=== PATIENT | female | born 1945 | race Hispanic/Latino ===

== ENCOUNTER → 2019-03-28 | Outpatient (CLI) | payer OTHER ==
[~2019-03-28] MED LIST: ASPI-555 PO; ATEN100T PO; ATOR40TA71 PO; CALC600T12 PO; CHOL100046 PO; CLOP75TA32 PO; FURO20TA4 PO; LISI1TAB13 PO; METF-445 PO; MVIT PO; PANT40TA25 PO; SERT25TA5 PO
== END | disposition home or self-care (01) ==
LOC: SHCH 14:47
PROVIDERS: ATTEND Internal Medicine Cardiovascular Disease
DX: I08.0 Rheumatic disorders of both mitral and aortic valves (principal); I11.9 Hypertensive heart disease without heart failure
CPT/HCPCS: 93306

== ENCOUNTER 2019-10-14 11:23 | Observation (INO) | payer OTHER ==
[~2019-10-14] VITALS: Ht 162.6 cm; Wt 76.4 kg
[~2019-10-14 11:23] MED LIST changes: -LISI1TAB13 PO; +LISI1TAB29 PO
[2019-10-14 11:47] LABS: BASOPHILS % (AUTO) 0.5 % (0.0-5.0); EOSINOPHILS % (AUTO) 0.9 % (0.0-8.0); MEAN CORPUSCULAR HEMOGLOBIN 26.4 pg (27.0-33.0); MEAN CORPUSCULAR HGB CONC 32.1 g/dL (32.0-36.0); MEAN CORPUSCULAR VOLUME 82.1 fL (79-99); MONOCYTES % (AUTO) 8.7 % (3.0-13.0); NEUTROPHILS % (AUTO) 72.9 % (40.0-77.0); PLATELET COUNT (AUTO) 178 K/uL (130-400); RED BLOOD CELL COUNT(AUTO) 4.14 MIL/uL (4.00-5.50); RED CELL DISTRIBUTION WIDTH 21.4 % (11.0-15.5); WHITE BLOOD COUNT (AUTO) 6.6 K/uL (4.8-10.8)
[2019-10-14] MEDS ORDERED: ASPIRIN 325 MG TABLET ONE (11:49)
[2019-10-14 11:58] LABS: CREATININE 0.9 mg/dL (0.5-1.5); POTASSIUM 3.8 mmol/L (3.5-5.1)
[2019-10-14 12:03] LABS: ALBUMIN 3.4 g/dL (3.5-5.0); BILIRUBIN,TOTAL 0.4 mg/dL (0.2-1.0); TOTAL PROTEIN, SERUM 7.6 g/dL (6.0-8.3)
[2019-10-14 12:14] LABS: PARTIAL THROMBOPLASTIN TIME 24.9 SEC (26.3-35.5); PROTHROMBIN TIME 10.5 SEC (9.6-11.6)
[2019-10-14] MEDS ORDERED: SODIUM CHLORIDE 0.9% 1000ML 1,000 ML IV SCH (14:28)
[2019-10-14] MEDS ORDERED: HYDRALAZINE HCL 20 MG/ML VIAL IV PRN (14:30)
[2019-10-14] MEDS ORDERED: MAG HYDROX/AL HYDROX/SIMETH ES 30 ML SUSP UDCUP PO PRN (14:30)
[2019-10-14] MEDS ORDERED: DIPHENHYDRAMINE HCL 25 MG CAPSULE PO PRN (14:30)
[2019-10-14] MEDS ORDERED: GUAIFENESIN-DM 200/20 MG 10 ML PO PRN (14:30)
[2019-10-14] MEDS ORDERED: DiphenhydrAMINE HCL 50 MG/ML VIAL IV PRN (14:30)
[2019-10-14] MEDS ORDERED: NITROGLYCERIN 0.4 MG SL TAB SL PRN (14:30)
[2019-10-14] MEDS ORDERED: LACTULOSE 20 GM/30 ML UDCUP PO PRN (14:30)
[2019-10-14] MEDS ORDERED: ONDANSETRON HCL 4 MG/2 ML VIAL IV PRN (14:30)
[2019-10-14] MEDS ORDERED: ACETAMINOPHEN 325 MG TAB PO PRN ×2 (14:30)
[2019-10-14] MEDS ORDERED: MORPHINE SULFATE 2 MG/ML 1ML SYG IVP PRN (15:00)
[2019-10-14 15:55] LABS: APPEARANCE,URINE Clear (CLEAR); BILIRUBIN,URINE Negative (NEGATIVE); COLOR,URINE Yellow (YELLOW); GLUCOSE, URINE (UA) Negative (NEGATIVE); KETONES,URINE Negative (NEGATIVE); LEUKOCYTE ESTERASE ,URINE Trace (NEGATIVE); NITRATE,URINE Negative (NEGATIVE); OCCULT BLOOD,URINE Negative (NEGATIVE); PH,URINE 7.5 (5.0-8.0); PROTEIN,URINE Negative (NEGATIVE); UROBILINOGEN,URINE 0.2 mg/dL (0.2-1.0)
[2019-10-14] MEDS: POLYETHYLENE GLYCOL 3350 17 GM POWD.PACK PO SCH (16:00)
[2019-10-14 16:03] LABS: BACTERIA,URINE Rare /HPF (None Seen); RBC,URINE 0-1 /HPF (0-1); SQUAMOUS EPITHELIAL CELL,UR Rare /HPF (0-2); WBC,URINE 0-1 /HPF (0-1)
[2019-10-14 16:14] VITALS: BP 152/72
[2019-10-14] MEDS ORDERED: PANTOPRAZOLE SODIUM 40 MG TABLET.DR PO ONE (17:53)
[2019-10-14] MEDS: PANTOPRAZOLE SODIUM 40 MG TABLET.DR PO SCH (17:55)
[2019-10-14] MEDS ORDERED: LISI1TAB28 PO (18:31)
[2019-10-14] MEDS ORDERED: AMLO5TAB9 PO (18:31)
[2019-10-14 19:00] VITALS: BP 140/63
[2019-10-14] MEDS ORDERED: METOPROLOL TARTRATE 25 MG TAB PO SCH (21:00)
[2019-10-14 23:00] VITALS: BP 128/54
[2019-10-15 03:00] VITALS: BP 117/50
[2019-10-15 07:00] VITALS: BP 126/62
[2019-10-15] MEDS ORDERED: PANT40TA PO (07:33)
--- NOTE | 2019-10-15 07:40 | NUR ---
ASSESSMENT ENCOUNTERED PT AMBULATING FROM BATHROOM TO BED, A&OX3, GAIT STEADY AND STRONG WITH STAND BY ASSIST, CALM COOPERATIVE AND DOES NOT APPEAR TO BE IN ANY DISTRESS NOR ANY NEURO DEFICITS PRESENT. PT DENIES PAIN, SOB, NAUSEA. PT IS ABLE TO TOLERATE FOODS, FLUIDS AND MEDICATION WITH NO THROAT CLEARING OR COUGH. CALL LIGHT WITHIN REACH.
[2019-10-15] MEDS: PANTOPRAZOLE SODIUM 40 MG TABLET.DR PO SCH (07:44)
[2019-10-15] MEDS: POLYETHYLENE GLYCOL 3350 17 GM POWD.PACK PO SCH (07:44)
[2019-10-15 08:12] LABS: BASOPHILS % (AUTO) 0.5 % (0.0-5.0); EOSINOPHILS % (AUTO) 1.4 % (0.0-8.0); HEMATOCRIT 33.8 % (36-48); LYMPHOCYTES % (AUTO) 25.9 % (21.0-51.0); MEAN CORPUSCULAR HEMOGLOBIN 26.8 pg (27.0-33.0); MEAN CORPUSCULAR HGB CONC 32.2 g/dL (32.0-36.0); MEAN CORPUSCULAR VOLUME 83.1 fL (79-99); MONOCYTES % (AUTO) 10.5 % (3.0-13.0); NEUTROPHILS % (AUTO) 61.7 % (40.0-77.0); NUCLEATED RED BLOOD CELLS 0.1 % (0.0-0.19); PLATELET COUNT (AUTO) 153 K/uL (130-400); RED BLOOD CELL COUNT(AUTO) 4.07 MIL/uL (4.00-5.50); RED CELL DISTRIBUTION WIDTH 20.5 % (11.0-15.5); WHITE BLOOD COUNT (AUTO) 6.5 K/uL (4.8-10.8)
[2019-10-15] MEDS ORDERED: ENOXAPARIN SODIUM 30 MG/0.3 ML SQ SCH (09:00)
--- NOTE | 2019-10-15 10:00 | NUR ---
DISCHARGE INSTRUCTIONS GIVEN, PIV REMOVED AND INTACT, DISCHARGED HOME TO FAMILY VEHICLE VIA WHEELCHAIR.
== END 2019-10-15 10:15 | disposition home or self-care (01) ==
LOC: EDH 11:23 → EDHIP 14:28 → 2AH 15:33
PROVIDERS: ADMIT Family Medicine; ATTEND Family Medicine
DX: R07.89 Other chest pain (principal); R10.13 Epigastric pain; K21.9 Gastro-esophageal reflux disease without esophagitis; I44.7 Left bundle-branch block, unspecified; I10 Essential (primary) hypertension; E11.9 Type 2 diabetes mellitus without complications; I25.10 Atherosclerotic heart disease of native coronary artery without angina pectoris; E78.5 Hyperlipidemia, unspecified; E66.9 Obesity, unspecified; M81.0 Age-related osteoporosis without current pathological fracture; Q21.0 Ventricular septal defect; I25.2 Old myocardial infarction; Z86.73 Personal history of transient ischemic attack (TIA), and cerebral infarction without residual deficits; Z87.891 Personal history of nicotine dependence; Z87.19 Personal history of other diseases of the digestive system; Z87.11 Personal history of peptic ulcer disease; Z95.1 Presence of aortocoronary bypass graft; Z79.82 Long term (current) use of aspirin; Z79.84 Long term (current) use of oral hypoglycemic drugs; Z79.899 Other long term (current) drug therapy
CPT/HCPCS: 36415 ×2; 71045; 80053; 81001; 82550 ×2; 83880; 84484 ×4; 85025 ×2; 85610; 85730; 87804 ×2; 93005 ×3; 96372; 99291; G0378 ×11; J1650; J7030

== ENCOUNTER 2019-12-04 13:18 | Observation (INO) | payer OTHER ==
[~2019-12-04] VITALS: Ht 167.6 cm; Wt 75.6 kg
[~2019-12-04 13:18] MED LIST changes: +AMLO5TAB9 PO; -ASPI-555 PO; -CLOP75TA32 PO; -FURO20TA4 PO; +LISI1TAB28 PO; -LISI1TAB29 PO; +PANT40TA PO; -PANT40TA25 PO
[2019-12-04] MEDS ORDERED: ASPIRIN 325 MG TABLET ONE (13:50)
[2019-12-04 13:54] LABS: BASOPHILS % (AUTO) 0.3 % (0.0-5.0); EOSINOPHILS % (AUTO) 0.7 % (0.0-8.0); HEMATOCRIT 41.5 % (36-48); MEAN CORPUSCULAR HEMOGLOBIN 26.8 pg (27.0-33.0); MEAN CORPUSCULAR HGB CONC 31.8 g/dL (32.0-36.0); MEAN CORPUSCULAR VOLUME 84.3 fL (79-99); MONOCYTES % (AUTO) 9.2 % (3.0-13.0); NEUTROPHILS % (AUTO) 68.6 % (40.0-77.0); PLATELET COUNT (AUTO) 179 K/uL (130-400); RED BLOOD CELL COUNT(AUTO) 4.92 MIL/uL (4.00-5.50); RED CELL DISTRIBUTION WIDTH 15.7 % (11.0-15.5); WHITE BLOOD COUNT (AUTO) 8.8 K/uL (4.8-10.8)
[2019-12-04 14:11] LABS: INR 0.98 (0.85-1.15); PARTIAL THROMBOPLASTIN TIME 25.9 SEC (26.3-35.5); PROTHROMBIN TIME 10.3 SEC (9.6-11.6)
[2019-12-04 14:12] LABS: CREATININE 1.2 mg/dL (0.5-1.5); POTASSIUM 4.2 mmol/L (3.5-5.1)
[2019-12-04 14:17] LABS: ALBUMIN 3.7 g/dL (3.5-5.0); BILIRUBIN,TOTAL 0.5 mg/dL (0.2-1.0); TOTAL PROTEIN, SERUM 8.3 g/dL (6.0-8.3)
[2019-12-04] MEDS ORDERED: HYDRALAZINE HCL 20 MG/ML VIAL IV PRN (17:30)
[2019-12-04] MEDS ORDERED: ACETAMINOPHEN 325 MG TAB PO PRN (17:30)
[2019-12-04] MEDS ORDERED: LISINOPRIL 20 MG TABLET PO SCH (17:30)
[2019-12-04] MEDS ORDERED: HYDROCHLOROTHIAZIDE 25 MG TABLET PO SCH (17:30)
--- NOTE | 2019-12-04 19:00 | NUR ---
RECEIVED REPORT RECEIVED FROM AM NURSE MANRIQUE. PT JUST GOT ADMITTED UP ON THE FLOOR. NURSE'S ROUNDS DONE. ADMISSION CARE DONE. IN FOR MORE CARE AND MANAGEMENT.
[2019-12-04] MEDS: LIDOCAINE 5% TOPICAL PATCH TP SCH (20:13)
--- NOTE | 2019-12-04 20:13 | NUR ---
MEDS SHIFT ASSESSMENT DONE, PLEASE REFER TO CHART. PENDING MED ORDERED FROM ER ADMINISTERED, TOLERATED WELL. ORIENTED TO ROOM AND UNIT. KEPT RESTED AND COMFORTABLE IN BED. CALL LIGHT WITHIN REACH. WILL MONITOR PT. Addendum: 12/04/19 at 2238 by DEMETRIUS BURROUGHS RN RN Amended: Links added.
[2019-12-04 20:16] VITALS: BP 152/76
--- NOTE | 2019-12-04 21:20 | NUR ---
DATA ADMISSION DATA BASE COMPLETED. UPDATED PT'S MEDS IN THE COMPUTER. RE-ITERATED FALL PRECAUTIONS. PT VERBALIZES UNDERSTANDING. PT COMPLAINTS OF PAINS ON HER RT CHEST WALL WITH MOVEMENT. MEDICATED WITH TYLENOL PO. KEPT RESTED AND COMFORTABLE IN BED. WILL RE-ASSESS PT.
[2019-12-04] MEDS ORDERED: ASPI-1012 PO (21:34)
[2019-12-04] MEDS ORDERED: FERR-82 PO (21:34)
[2019-12-04 22:19] LABS: CREATINE KINASE, TOTAL 50 U/L (21-232); MYOGLOBIN 62 ng/mL (10-92); TROPONIN I < 0.04 ng/mL (0.00-0.06)
[2019-12-04] MEDS ORDERED: RANITIDINE HCL 15 MG/1 ML PO SCH (23:00)
[2019-12-04 23:35] LABS: CHOLESTEROL 168 mg/dL (<200); HDL CHOLESTEROL 111 mg/dL (35-85); LDL DIRECT 101 mg/dL (0-99); TRIGLYCERIDES 178 mg/dL (30-200)
[2019-12-05 00:16] VITALS: BP 124/67
--- NOTE | 2019-12-05 02:00 | NUR ---
ROUNDS PT RESTING WELL, FAIRLY ASLEEP WITH RESPIRATIONS EVEN AND UNLABORED. NO NOTED DISTRESS. KEPT UNDISTURBED FOR NOW WILL MONITOR PT. CALL LIGHT WITHIN REACH.
[2019-12-05 04:16] VITALS: BP 114/61
[2019-12-05 05:07] LABS: CREATINE KINASE, TOTAL 63 U/L (21-232); MYOGLOBIN 52 ng/mL (10-92); TROPONIN I < 0.04 ng/mL (0.00-0.06)
--- NOTE | 2019-12-05 06:10 | NUR ---
ROUNDS PT RESTING WELL, STILL FAIRLY ASLEEP. NO DISTRESS NOTED. KEPT UNDISTURBED. FOR MORE CARE AND MANAGEMENT.
[2019-12-05 07:00] VITALS: BP 137/65
[2019-12-05] MEDS ORDERED: TRAMADOL HCL 50 MG TABLET PO SCH (08:15)
[2019-12-05] MEDS: LIDOCAINE 5% TOPICAL PATCH TP SCH (08:45)
[2019-12-05] MEDS ORDERED: ASPIRIN 325MG EC TAB 325 MG TABLET.DR PO SCH (09:00)
[2019-12-05 10:32] LABS: CREATINE KINASE, TOTAL 51 U/L (21-232); MYOGLOBIN 48 ng/mL (10-92); TROPONIN I < 0.04 ng/mL (0.00-0.06)
[2019-12-05] MEDS ORDERED: FERROUS SULFATE 325 MG TABLET.DR PO SCH (12:00)
[2019-12-05 12:01] VITALS: BP 130/60
--- NOTE | 2019-12-05 13:30 | NUR ---
PT D/C HOME USING TEACH BACK TECHNIQUE RE; NEW MEDS, HOME MEDS, S/S TO WATCH FOR AND WHEN TO CALL MD OR 911. FOLLOW UP WITH YOUR PRIMARY DOCTOR IN 2-4 DAYS FOR TRANSITION OF CARE. FOLLOW UP WITH YOUR SR TECHNICAL SALES CONSULTANT IN 1-2 WEEKS CALL TO SET UP AN APPOINTMENT. IF CHEST PAIN OR SHORTNESS OF BREATH DOES NOT RESOLVE WITH REST CALL 911. IV OUT INTACT, NO BLEEDING, AAOX3, DENIES ANY DISTRESS, EDUCATIONS GIVEN DAUGHTER AT BEDSIDE.
--- NOTE | 2019-12-05 14:38 | NUR ---
CM NOTE PATIENT DISCHARGED, GONE. NO NEEDS VERBALIZED BY NURSING STAFF. Addendum: 12/05/19 at 1439 by BLAIRE FERNANDEZ RN CM Amended: Links added.
[2019-12-05] MEDS ORDERED: AMLODIPINE BESYLATE 5 MG TAB PO SCH (21:00)
[2019-12-05] MEDS ORDERED: SERTRALINE HCL 50 MG TABLET PO SCH (21:00)
[2019-12-05] MEDS ORDERED: ATORVASTATIN CALCIUM 40 MG TABLET PO SCH (21:00)
== END 2019-12-05 14:18 | disposition home or self-care (01) ==
LOC: EDH 13:18 → EDHIP 17:19 → 4DH 18:29
PROVIDERS: ADMIT Internal Medicine; ATTEND Internal Medicine
DX: M94.0 Chondrocostal junction syndrome [Tietze] (principal); I11.9 Hypertensive heart disease without heart failure; E11.9 Type 2 diabetes mellitus without complications; E78.5 Hyperlipidemia, unspecified; M81.0 Age-related osteoporosis without current pathological fracture; Z87.11 Personal history of peptic ulcer disease; Z86.73 Personal history of transient ischemic attack (TIA), and cerebral infarction without residual deficits; Z87.891 Personal history of nicotine dependence; Z95.1 Presence of aortocoronary bypass graft; Z79.82 Long term (current) use of aspirin; Z79.84 Long term (current) use of oral hypoglycemic drugs; Z79.899 Other long term (current) drug therapy
CPT/HCPCS: 36415 ×2; 71045; 80053; 80061; 82270; 82550 ×4; 82948 ×3; 83874 ×3; 84484 ×4; 85025; 85610; 85730; 93005; 99284; G0378 ×20

== ENCOUNTER 2020-04-07 22:41 | Observation (INO) | payer OTHER ==
[~2020-04-07] VITALS: Ht 162.6 cm; Wt 78.8 kg
[~2020-04-07 22:41] MED LIST changes: +ASPI-1012 PO; +FERR-82 PO
[2020-04-07 22:54] LABS: BASOPHILS % (AUTO) 0.3 % (0.0-5.0); EOSINOPHILS % (AUTO) 0.8 % (0.0-8.0); HEMATOCRIT 40.1 % (36-48); LYMPHOCYTES % (AUTO) 17.9 % (21.0-51.0); MEAN CORPUSCULAR HEMOGLOBIN 29.6 pg (27.0-33.0); MEAN CORPUSCULAR HGB CONC 33.4 g/dL (32.0-36.0); MEAN CORPUSCULAR VOLUME 88.7 fL (79-99); MONOCYTES % (AUTO) 7.3 % (3.0-13.0); NEUTROPHILS % (AUTO) 73.4 % (40.0-77.0); PLATELET COUNT (AUTO) 170 K/uL (130-400); RED BLOOD CELL COUNT(AUTO) 4.52 MIL/uL (4.00-5.50); RED CELL DISTRIBUTION WIDTH 12.9 % (11.0-15.5); WHITE BLOOD COUNT (AUTO) 12.2 K/uL (4.8-10.8)
[2020-04-07] MEDS ORDERED: NITROGLYCERIN 0.4 MG SL TAB SL ONE (22:54)
[2020-04-07 23:15] LABS: CREATININE 0.8 mg/dL (0.5-1.5); POTASSIUM 4.3 mmol/L (3.5-5.1)
[2020-04-07 23:16] LABS: ALBUMIN 3.8 g/dL (3.5-5.0); BILIRUBIN,TOTAL 0.5 mg/dL (0.2-1.0)
[2020-04-07] MEDS ORDERED: NITROGLYCERIN 1GM/1 INCH PACKET TD ONE (23:20)
[2020-04-07 23:21] LABS: INR 0.95 (0.85-1.15); PARTIAL THROMBOPLASTIN TIME 25.7 SEC (26.3-35.5); PROTHROMBIN TIME 10.3 SEC (9.6-11.6)
[2020-04-08] MEDS ORDERED: HYDRALAZINE HCL 20 MG/ML VIAL IV PRN (03:00)
[2020-04-08] MEDS ORDERED: ACETAMINOPHEN 325 MG TAB PO PRN ×2 (03:00)
[2020-04-08] MEDS ORDERED: MORPHINE SULFATE 2 MG/ML 1ML SYG IV PRN (03:00)
[2020-04-08] MEDS: CEFTRIAXONE SODIUM 1 GM IV SCH ×2 (03:00→15:21)
[2020-04-08] MEDS ORDERED: ONDANSETRON HCL 4 MG/2 ML VIAL IV PRN (03:00)
[2020-04-08 04:05] VITALS: BP 150/69
[2020-04-08] MEDS: SODIUM CHLORIDE 0.9% 1000ML 1,000 ML IV SCH ×2 (04:51→18:03)
[2020-04-08 04:52] LABS: HEMOGLOBIN A1C 6.3 % (4.0-6.0)
[2020-04-08 04:53] LABS: CHOLESTEROL 156 mg/dL (<200); HDL CHOLESTEROL 48 mg/dL (35-85); LDL DIRECT 96 mg/dL (0-99); TRIGLYCERIDES 147 mg/dL (30-200)
--- NOTE | 2020-04-08 05:00 | NUR ---
MED REC PT DID NOT BRING HER HOME MEDICATION TO RECONCILE. PT STATES SHE WILL CALL HER DAUGHTER TO BRING BECAUSE SHE DOES NOT REMEMBER WHAT MEDICATIONS SHE TAKES AT HOME
[2020-04-08 08:00] VITALS: BP 148/68
[2020-04-08] MEDS: FAMOTIDINE/PF 20 MG/2 ML VIAL IV SCH ×2 (10:27→20:58)
[2020-04-08] MEDS: ENOXAPARIN SODIUM 30 MG/0.3 ML SQ SCH (10:27)
[2020-04-08] MEDS: METOPROLOL TARTRATE 25 MG TAB PO SCH ×2 (10:27→21:00)
[2020-04-08] MEDS: ASPIRIN 81MG TAB.CHEW PO SCH (10:27)
[2020-04-08 12:00] VITALS: BP 130/68
[2020-04-08 13:56] LABS: APPEARANCE,URINE Clear (CLEAR); BILIRUBIN,URINE Negative (NEGATIVE); COLOR,URINE Yellow (YELLOW); GLUCOSE, URINE (UA) Negative (NEGATIVE); KETONES,URINE Negative (NEGATIVE); LEUKOCYTE ESTERASE ,URINE Trace (NEGATIVE); NITRATE,URINE Negative (NEGATIVE); OCCULT BLOOD,URINE Negative (NEGATIVE); PROTEIN,URINE Negative (NEGATIVE); UROBILINOGEN,URINE 0.2 mg/dL (0.2-1.0)
[2020-04-08 14:12] LABS: HEMATOCRIT 35.6 % (36-48); MEAN CORPUSCULAR HGB CONC 33.4 g/dL (32.0-36.0); MEAN CORPUSCULAR VOLUME 89.7 fL (79-99); RED BLOOD CELL COUNT(AUTO) 3.97 MIL/uL (4.00-5.50); RED CELL DISTRIBUTION WIDTH 13.1 % (11.0-15.5); WHITE BLOOD COUNT (AUTO) 7.5 K/uL (4.8-10.8)
[2020-04-08 14:18] LABS: BACTERIA,URINE Few /HPF (None Seen); RBC,URINE 0-1 /HPF (0-1)
[2020-04-08 14:19] LABS: WBC,URINE 0-1 /HPF (0-1)
[2020-04-08 14:41] LABS: CARBON DIOXIDE 32 mmol/L (21-32); CHLORIDE 104 mmol/L (101-111); CREATINE KINASE, TOTAL 35 U/L (21-232); CREATININE 0.9 mg/dL (0.5-1.5); GLOMERULAR FILTR. RATE CALC 65 mL/min (>60); GLUCOSE,RANDOM 119 mg/dL (70-105); MYOGLOBIN 24 ng/mL (10-92); POTASSIUM 4.1 mmol/L (3.5-5.1); SODIUM SERUM 139 mmol/L (136-145); TROPONIN I < 0.04 ng/mL (0.00-0.06); UREA NITROGEN, BLOOD 18 mg/dL (7-18)
[2020-04-08 16:00] VITALS: BP_SYST 136; BP_SYST 159; BP_DIAS 64; BP_DIAS 67
[2020-04-08] MEDS ORDERED: OMEP10CA5 PO (18:28)
[2020-04-08] MEDS ORDERED: ASPI-1012 PO (18:28)
[2020-04-08] MEDS ORDERED: METF-445 PO (18:28)
[2020-04-08] MEDS ORDERED: AMLO-390 PO (18:28)
[2020-04-08] MEDS ORDERED: ATEN100T PO (18:28)
[2020-04-08] MEDS ORDERED: DEXTROSE 50%-WATER 50 ML DISP.SYRIN IV PRN (18:45)
[2020-04-08] MEDS ORDERED: GLUCAGON 1MG KIT 1 MG ML IM PRN (18:45)
[2020-04-08 18:46] LABS: CREATINE KINASE, TOTAL 37 U/L (21-232); MYOGLOBIN 30 ng/mL (10-92); TROPONIN I < 0.04 ng/mL (0.00-0.06)
--- NOTE | 2020-04-08 18:50 | NUR ---
Pt was transferred to 3rd floor, rm 303, pt endorsed to Branedn, aox4, no visible distress, relaxed, taken down in wheelchair, pending lexiscan in AM, home meds reconciled in system.
[2020-04-08 20:00] VITALS: BP 173/60
--- NOTE | 2020-04-08 20:00 | NUR ---
NO PAIN Pt aao x4 ,denies chest pain.
[2020-04-08] MEDS: LISINOPRIL 20 MG TABLET PO SCH (20:58)
[2020-04-08] MEDS: HYDROCHLOROTHIAZIDE 25 MG TABLET PO SCH (20:59)
[2020-04-08] MEDS: SERTRALINE HCL 50 MG TABLET PO SCH (21:00)
[2020-04-08] MEDS ORDERED: ATORVASTATIN CALCIUM 10 MG TABLET PO SCH (21:00)
[2020-04-08] MEDS ORDERED: ATORVASTATIN CALCIUM 40 MG TABLET PO SCH (21:00)
[2020-04-08] MEDS: INSULIN HUMULIN R 100 UNIT/ML 3ML SQ SCH (21:00)
[2020-04-08] MEDS: AMLODIPINE BESYLATE 5 MG TAB PO SCH (21:00)
[2020-04-08] MEDS: ATORVASTATIN CALCIUM 10 MG TABLET PO SCH (21:00)
[2020-04-08 23:53] VITALS: BP 160/66
[2020-04-09] VITALS (7 sets, daily range): BP systolic 110–175; BP diastolic 47–70
[2020-04-09] MEDS: CEFTRIAXONE SODIUM 1 GM IV SCH ×2 (01:29→15:45)
--- NOTE | 2020-04-09 04:10 | NUR ---
PRN Apresoline given for sys bp >160.
[2020-04-09] MEDS: SODIUM CHLORIDE 0.9% 1000ML 1,000 ML IV SCH ×2 (04:17→18:54)
[2020-04-09 05:33] LABS: BASOPHILS % (AUTO) 0.4 % (0.0-5.0); EOSINOPHILS % (AUTO) 0.8 % (0.0-8.0); HEMATOCRIT 38.6 % (36-48); LYMPHOCYTES % (AUTO) 22.8 % (21.0-51.0); MEAN CORPUSCULAR HGB CONC 33.7 g/dL (32.0-36.0); MEAN CORPUSCULAR VOLUME 88.9 fL (79-99); NEUTROPHILS % (AUTO) 66.8 % (40.0-77.0); PLATELET COUNT (AUTO) 133 K/uL (130-400); RED BLOOD CELL COUNT(AUTO) 4.34 MIL/uL (4.00-5.50); RED CELL DISTRIBUTION WIDTH 13.2 % (11.0-15.5); WHITE BLOOD COUNT (AUTO) 8.5 K/uL (4.8-10.8)
[2020-04-09 05:48] LABS: ALBUMIN 3.3 g/dL (3.5-5.0); BILIRUBIN,TOTAL 0.5 mg/dL (0.2-1.0); CREATININE 0.9 mg/dL (0.5-1.5); POTASSIUM 3.7 mmol/L (3.5-5.1); TOTAL PROTEIN, SERUM 7.4 g/dL (6.0-8.3)
[2020-04-09] MEDS: INSULIN HUMULIN R 100 UNIT/ML 3ML SQ SCH ×4 (05:48→20:45)
[2020-04-09] MEDS: LISINOPRIL 20 MG TABLET PO SCH ×2 (08:17→20:42)
[2020-04-09] MEDS: HYDROCHLOROTHIAZIDE 25 MG TABLET PO SCH ×2 (08:17→20:42)
[2020-04-09] MEDS: ASPIRIN 81MG TAB.CHEW PO SCH (08:18)
[2020-04-09] MEDS: FAMOTIDINE/PF 20 MG/2 ML VIAL IV SCH ×2 (08:18→20:45)
[2020-04-09] MEDS: ENOXAPARIN SODIUM 30 MG/0.3 ML SQ SCH (08:19)
[2020-04-09] MEDS ORDERED: PANTOPRAZOLE SODIUM 40 MG TABLET.DR PO SCH (09:00)
[2020-04-09] MEDS ORDERED: ATENOLOL 50 MG TABLET PO SCH (09:00)
[2020-04-09] MEDS ORDERED: NON-FORMULARY MEDICATION 1 EACH (Atenolol 100 MG) PO SCH (09:00)
[2020-04-09] MEDS ORDERED: CLONIDINE HCL 0.1 MG TABLET PO PRN (09:45)
[2020-04-09 09:55] LABS: MAGNESIUM 1.8 mg/dL (1.80-2.40); PHOSPHORUS 3.2 mg/dL (2.5-4.9)
[2020-04-09] MEDS ORDERED: [UNRECOGNIZED DRUG - OTHER] PO SCH (13:00)
[2020-04-09] MEDS ORDERED: AMLODIPINE PO SCH (13:00)
[2020-04-09] MEDS ORDERED: ATORVASTATIN PO SCH (13:00)
--- NOTE | 2020-04-09 13:22 | NUR ---
CHART REVIEWED PT AT [facility], WILL FOLLOW UP WITH DETIALED CM ASSESSMENT IN AM IF PATIENT IS STILL HERE Addendum: 04/09/20 at 1323 by CHING OLMSTEAD RN CM Amended: Links added.
[2020-04-09] MEDS ORDERED: REGADENOSON 0.4 MG/5 ML PF SYG IVP SCH (13:30)
[2020-04-09] MEDS: SERTRALINE HCL 50 MG TABLET PO SCH (20:41)
[2020-04-09] MEDS: ATORVASTATIN CALCIUM 10 MG TABLET PO SCH (20:41)
[2020-04-09] MEDS: AMLODIPINE BESYLATE 5 MG TAB PO SCH (20:43)
[2020-04-10] MEDS: CEFTRIAXONE SODIUM 1 GM IV SCH (03:13)
[2020-04-10 03:50] VITALS: BP 116/56
--- NOTE | 2020-04-10 04:39 | NUR ---
STATUS Pt slept well.Voiced no complaints of pain or discomfort.
[2020-04-10 05:51] LABS: BASOPHILS % (AUTO) 0.3 % (0.0-5.0); EOSINOPHILS % (AUTO) 1.3 % (0.0-8.0); HEMATOCRIT 38.4 % (36-48); LYMPHOCYTES % (AUTO) 27.5 % (21.0-51.0); MEAN CORPUSCULAR HEMOGLOBIN 29.2 pg (27.0-33.0); MEAN CORPUSCULAR HGB CONC 32.8 g/dL (32.0-36.0); MEAN CORPUSCULAR VOLUME 88.9 fL (79-99); MONOCYTES % (AUTO) 12.3 % (3.0-13.0); NEUTROPHILS % (AUTO) 58.3 % (40.0-77.0); PLATELET COUNT (AUTO) 137 K/uL (130-400); RED BLOOD CELL COUNT(AUTO) 4.32 MIL/uL (4.00-5.50); RED CELL DISTRIBUTION WIDTH 13.2 % (11.0-15.5); WHITE BLOOD COUNT (AUTO) 7.1 K/uL (4.8-10.8)
[2020-04-10] MEDS: INSULIN HUMULIN R 100 UNIT/ML 3ML SQ SCH ×2 (05:54→11:29)
[2020-04-10 06:08] LABS: CREATININE 1.1 mg/dL (0.5-1.5); POTASSIUM 3.8 mmol/L (3.5-5.1)
[2020-04-10 07:30] VITALS: BP 122/56
[2020-04-10] MEDS: SODIUM CHLORIDE 0.9% 1000ML 1,000 ML IV SCH (08:01)
[2020-04-10] MEDS: FAMOTIDINE/PF 20 MG/2 ML VIAL IV SCH (08:04)
[2020-04-10] MEDS: ENOXAPARIN SODIUM 30 MG/0.3 ML SQ SCH (08:05)
[2020-04-10] MEDS: ASPIRIN 81MG TAB.CHEW PO SCH (08:05)
[2020-04-10] MEDS: HYDROCHLOROTHIAZIDE 25 MG TABLET PO SCH (08:06)
[2020-04-10] MEDS: LISINOPRIL 20 MG TABLET PO SCH (08:06)
[2020-04-10] MEDS ORDERED: ATOR10 PO (08:55)
[2020-04-10] MEDS ORDERED: AMLO5TAB4 PO (08:55)
[2020-04-10] MEDS ORDERED: ASPI-1005 PO (08:55)
[2020-04-10] MEDS ORDERED: EZET10TA48 PO (09:40)
[2020-04-10] MEDS ORDERED: OLME1TAB84 PO (09:40)
[2020-04-10] MEDS ORDERED: IOHEXOL-350 75 ML VIAL IV ONE (10:54)
[2020-04-10 11:12] VITALS: BP 119/52
--- NOTE | 2020-04-10 18:29 | NUR ---
[id number] patient signed [facility]ISON Letter, I faxed IM Letter to [phone] and placed in chart under consent tab.
== END 2020-04-10 12:40 | disposition home or self-care (01) ==
LOC: EDH 22:41 → EDHIP 04-08 02:54 → INTOOBSV 04-08 02:54 → 4CH 04-08 04:35 → 3AH 04-08 18:39
PROVIDERS: ADMIT Hospitalist; ATTEND Hospitalist
DX: R07.89 Other chest pain (principal); E11.9 Type 2 diabetes mellitus without complications; E78.5 Hyperlipidemia, unspecified; D72.829 Elevated white blood cell count, unspecified; I10 Essential (primary) hypertension; Z87.891 Personal history of nicotine dependence; Z95.1 Presence of aortocoronary bypass graft; Z86.73 Personal history of transient ischemic attack (TIA), and cerebral infarction without residual deficits; Z79.82 Long term (current) use of aspirin
CPT/HCPCS: 36415 ×4; 71045; 71275; 78452; 80048 ×2; 80053 ×2; 80061; 81001; 82550 ×3; 82948 ×9; 83036; 83605; 83690; 83735; 83874 ×2; 84100; 84484 ×3; 85025 ×3; 85027; 85610; 85730; 87040 ×2; 93005 ×3; 93017; 96372 ×3; 96374; 96375 ×2; 96376 ×3; 99291; A9500 ×2; G0378 ×23; J0360 ×2; J0696 ×4; J1650 ×3; J2785; J3490 ×4; J7030; Q9967

== ENCOUNTER 2021-08-31 17:52 | Observation (INO) | payer MEDICARE, OTHER ==
[~2021-08-31] VITALS: Ht 162.6 cm; Wt 78.8 kg
[~2021-08-31 17:52] MED LIST changes: +AMLO5TAB4 PO; -AMLO5TAB9 PO; +ASPI-1005 PO; -ASPI-1012 PO; -ATEN100T PO; +ATOR10 PO; -CALC600T12 PO; -CHOL100046 PO; +EZET10TA48 PO; -FERR-82 PO; -LISI1TAB28 PO; -MVIT PO; +OLME-9 PO; +OMEP10CA5 PO; -PANT40TA PO; +SERT-438 PO; -SERT25TA5 PO
[2021-08-31 18:14] LABS: BASOPHILS % (AUTO) 0.3 % (0.0-5.0); HEMATOCRIT 37.2 % (36-48); LYMPHOCYTES % (AUTO) 16.6 % (21.0-51.0); MEAN CORPUSCULAR HEMOGLOBIN 30.8 pg (27.0-33.0); MEAN CORPUSCULAR HGB CONC 33.6 g/dL (32.0-36.0); MEAN CORPUSCULAR VOLUME 91.6 fL (79-99); MONOCYTES % (AUTO) 7.9 % (3.0-13.0); NEUTROPHILS % (AUTO) 73.8 % (40.0-77.0); PLATELET COUNT (AUTO) 142 K/uL (130-400); RED BLOOD CELL COUNT(AUTO) 4.06 MIL/uL (4.00-5.50); RED CELL DISTRIBUTION WIDTH 12.6 % (11.0-15.5); WHITE BLOOD COUNT (AUTO) 9.5 K/uL (4.8-10.8)
[2021-08-31 18:37] LABS: ALBUMIN 3.9 g/dL (3.5-5.0); BILIRUBIN,TOTAL 0.6 mg/dL (0.2-1.0); CREATININE 1.1 mg/dL (0.5-1.5); MAGNESIUM 1.8 mg/dL (1.80-2.40); POTASSIUM 4.5 mmol/L (3.5-5.1); TOTAL PROTEIN, SERUM 7.8 g/dL (6.0-8.3)
[2021-08-31] MEDS: NITROGLYCERIN 1GM OINT 1 INCH/1GM TD SCH (19:30)
[2021-08-31] MEDS ORDERED: ONDANSETRON 4MG INJ IV PRN (19:30)
[2021-08-31 20:07] LABS: APPEARANCE,URINE Clear (CLEAR); BILIRUBIN,URINE Negative (NEGATIVE); COLOR,URINE Yellow (YELLOW); GLUCOSE, URINE (UA) Negative (NEGATIVE); KETONES,URINE Negative (NEGATIVE); LEUKOCYTE ESTERASE ,URINE Moderate (NEGATIVE); NITRATE,URINE Negative (NEGATIVE); OCCULT BLOOD,URINE Negative (NEGATIVE); PROTEIN,URINE Negative (NEGATIVE); UROBILINOGEN,URINE 0.2 mg/dL (0.2-1.0)
[2021-08-31 20:21] LABS: BACTERIA,URINE Few /HPF (None Seen); MUCUS,URINE Rare LPF (None Seen); RBC,URINE 0-1 /HPF (0-1); SQUAMOUS EPITHELIAL CELL,UR Rare /HPF (0-2)
[2021-08-31] MEDS ORDERED: HYDRALAZINE 20MG/ML VIAL IV PRN (21:00)
[2021-08-31] MEDS: INSULIN HUMULIN R 100 UNIT/ML 3ML SQ SCH (21:00)
[2021-09-01 02:20] VITALS: BP 148/70
[2021-09-01] MEDS: NITROGLYCERIN 1GM OINT 1 INCH/1GM TD SCH ×2 (04:10→11:11)
[2021-09-01 05:41] LABS: BASOPHILS % (AUTO) 0.3 % (0.0-5.0); EOSINOPHILS % (AUTO) 1.2 % (0.0-8.0); HEMATOCRIT 34.8 % (36-48); LYMPHOCYTES % (AUTO) 27.2 % (21.0-51.0); MEAN CORPUSCULAR HEMOGLOBIN 29.9 pg (27.0-33.0); MEAN CORPUSCULAR VOLUME 90.6 fL (79-99); MONOCYTES % (AUTO) 10.2 % (3.0-13.0); NEUTROPHILS % (AUTO) 60.8 % (40.0-77.0); PLATELET COUNT (AUTO) 139 K/uL (130-400); RED BLOOD CELL COUNT(AUTO) 3.84 MIL/uL (4.00-5.50); RED CELL DISTRIBUTION WIDTH 12.6 % (11.0-15.5); WHITE BLOOD COUNT (AUTO) 6.8 K/uL (4.8-10.8)
[2021-09-01 05:52] LABS: MAGNESIUM 1.7 mg/dL (1.80-2.40); POTASSIUM 3.9 mmol/L (3.5-5.1)
[2021-09-01] MEDS: INSULIN HUMULIN R 100 UNIT/ML 3ML SQ SCH ×3 (05:56→16:30)
[2021-09-01 08:07] VITALS: BP 141/71
[2021-09-01] MEDS ORDERED: ENOXAPARIN SODIUM 40 MG/0.4 ML SYRINGE SQ SCH (09:00)
[2021-09-01] MEDS ORDERED: FAMOTIDINE 20MG TAB PO SCH (09:00)
[2021-09-01] MEDS ORDERED: ASPIRIN 81MG CHEW TAB PO SCH (09:00)
[2021-09-01] MEDS ORDERED: MAGNESIUM 2GM PREMIX 50ML 50 ML IV SCH (10:30)
[2021-09-01 11:19] VITALS: BP 146/73
[2021-09-01] MEDS ORDERED: PANT40TA54 PO (15:58)
[2021-09-01] MEDS ORDERED: ALEN70TA80 PO (15:58)
[2021-09-01] MEDS ORDERED: FERS325 PO (15:58)
[2021-09-01] MEDS ORDERED: LABE100T5 PO (15:58)
[2021-09-01 16:39] VITALS: BP 157/83
== END 2021-09-01 17:15 | disposition home or self-care (01) ==
LOC: EDH 17:52 → EDHIP 19:24 → 4BH 09-01 02:24
PROVIDERS: ADMIT Internal Medicine; ATTEND Internal Medicine
DX: R07.89 Other chest pain (principal); I10 Essential (primary) hypertension; E78.5 Hyperlipidemia, unspecified; E11.9 Type 2 diabetes mellitus without complications; K21.9 Gastro-esophageal reflux disease without esophagitis; E78.00 Pure hypercholesterolemia, unspecified; I44.0 Atrioventricular block, first degree; F41.1 Generalized anxiety disorder; I25.2 Old myocardial infarction; Z79.82 Long term (current) use of aspirin; Z79.899 Other long term (current) drug therapy; Z86.73 Personal history of transient ischemic attack (TIA), and cerebral infarction without residual deficits; Z95.1 Presence of aortocoronary bypass graft; Z51.5 Encounter for palliative care
CPT/HCPCS: 36415 ×2; 71045; 80048; 80053; 81001; 82550; 82948 ×4; 83036; 83735 ×4; 84100; 84484 ×4; 85025 ×2; 87088; 93005 ×3; 96365; 96366; 96372; 99285; G0378 ×22; J1650; J3475

== ENCOUNTER → 2022-04-17 | Outpatient (CLI) | payer MEDICARE ==
[~2022-04-17] MED LIST changes: +ALEN70TA80 PO; -ATOR10 PO; +FERS325 PO; +LABE100T5 PO; -OMEP10CA5 PO; +PANT40TA54 PO
== END | disposition home or self-care (01) ==
LOC: SHCH 12:37
PROVIDERS: ATTEND Internal Medicine Cardiovascular Disease
DX: Q21.0 Ventricular septal defect (principal); I08.0 Rheumatic disorders of both mitral and aortic valves; I11.9 Hypertensive heart disease without heart failure; E11.9 Type 2 diabetes mellitus without complications; E66.9 Obesity, unspecified; E78.5 Hyperlipidemia, unspecified
CPT/HCPCS: 93306

== ENCOUNTER 2024-04-10 12:36 | Inpatient (IN) | payer MEDICARE ==
[~2024-04-10] VITALS: Ht 157.5 cm; Wt 80.3 kg
[~2024-04-10 12:36] MED LIST changes: -LABE100T5 PO; +LABE100T7 PO; +OLME-30 PO; -OLME-9 PO
[2024-04-10 13:20] LABS: APPEARANCE,URINE CLEAR (CLEAR); BILIRUBIN,URINE NEGATIVE (NEGATIVE); COLOR,URINE LIGHT-YELLOW (YELLOW); GLUCOSE, URINE (UA) NEGATIVE (NEGATIVE); KETONES,URINE NEGATIVE (NEGATIVE); LEUKOCYTE ESTERASE ,URINE 75 Leu/uL (NEGATIVE); NITRATE,URINE NEGATIVE (NEGATIVE); OCCULT BLOOD,URINE NEGATIVE (NEGATIVE); PH,URINE 5.5 (5.0-8.0); PROTEIN,URINE NEGATIVE (NEGATIVE); UROBILINOGEN,URINE 0.2 mg/dL (0.2-1.0)
[2024-04-10 13:21] LABS: ADD UA MICROSCOPIC YES
[2024-04-10 13:23] LABS: BACTERIA,URINE RARE /HPF (None Seen); MUCUS,URINE RARE LPF (None Seen); RBC,URINE 0-1 /HPF (0-1); SQUAMOUS EPITHELIAL CELL,UR RARE /HPF (0-2)
[2024-04-10 13:24] LABS: BASOPHILS # (AUTO) 0.02 K/uL (0.00-0.20); BASOPHILS % (AUTO) 0.2 % (0.0-5.0); EOSINOPHILS # (AUTO) 0.11 K/uL (0.00-0.70); EOSINOPHILS % (AUTO) 1.3 % (0.0-8.0); HEMATOCRIT 39.5 % (36-48); IMMATURE GRANULOCYTE ABSOLUTE 0.02 K/uL (0-1); LYMPHOCYTES # (AUTO) 1.6 K/uL (1.0-4.8); LYMPHOCYTES % (AUTO) 19.7 % (21.0-51.0); MEAN CORPUSCULAR HEMOGLOBIN 29.7 pg (27.0-33.0); MEAN CORPUSCULAR HGB CONC 32.4 g/dL (32.0-36.0); MEAN CORPUSCULAR VOLUME 91.6 fL (79-99); MONOCYTES # (AUTO) 0.9 K/uL (0.1-1.0); MONOCYTES % (AUTO) 10.9 % (3.0-13.0); NEUTROPHILS # (AUTO) 5.6 K/uL (1.8-7.7); NEUTROPHILS % (AUTO) 67.7 % (40.0-77.0); PLATELET COUNT (AUTO) 164 K/uL (130-400); RED BLOOD CELL COUNT(AUTO) 4.31 MIL/uL (4.00-5.50); RED CELL DISTRIBUTION WIDTH 12.9 % (11.0-15.5); WHITE BLOOD COUNT (AUTO) 8.3 K/uL (4.8-10.8)
[2024-04-10] MEDS: ONDANSETRON 4MG INJ IVP ONE (13:29)
[2024-04-10] MEDS: MORPHINE 2 MG SYG IVP ONE (13:29)
[2024-04-10] MEDS: 0.9%NACL 1000ML 1,000 ML IV ONE ×2 (13:29→17:25)
[2024-04-10 13:31] LABS: CREATININE 1.7 mg/dL (0.5-1.0); POTASSIUM 4.6 mmol/L (3.5-5.1)
[2024-04-10 13:40] LABS: ALBUMIN 3.9 g/dL (3.5-5.0); BILIRUBIN,TOTAL 0.6 mg/dL (0.2-1.0); TOTAL PROTEIN, SERUM 7.6 g/dL (6.0-8.3)
[2024-04-10] MEDS ORDERED: GABA-529 PO (17:10)
[2024-04-10] MEDS ORDERED: OLME40TA18 PO (17:10)
[2024-04-10 17:57] LABS: THYROID STIMULATING HORMONE 1.69 uIU/mL (0.36-3.74)
[2024-04-10 18:10] LABS: HEMOGLOBIN A1C 5.9 % (4.0-6.0)
[2024-04-10 19:27] LABS: CREATININE,URINE RANDOM 33.6 mg/dL (30-135)
[2024-04-10] MEDS: ATORVASTATIN 40 MG TABLET PO SCH (20:38)
[2024-04-10] MEDS: LABETALOL HCL 100 MG TABLET PO SCH (20:39)
[2024-04-10] MEDS: AMLODIPINE 5 MG TAB PO SCH (20:39)
[2024-04-10] MEDS: GABAPENTIN 100 MG CAPSULE PO SCH (20:39)
[2024-04-10 22:06] VITALS: BP 140/55; PULSE 58; RESP 17
[2024-04-11] VITALS (7 sets, daily range): BP systolic 112–144; BP diastolic 49–56; PULSE 60–93; RESP 18; O2SAT 92–93
[2024-04-11 07:38] LABS: BASOPHILS # (AUTO) 0.02 K/uL (0.00-0.20); BASOPHILS % (AUTO) 0.3 % (0.0-5.0); EOSINOPHILS # (AUTO) 0.15 K/uL (0.00-0.70); EOSINOPHILS % (AUTO) 2.3 % (0.0-8.0); HEMATOCRIT 33.6 % (36-48); IMMATURE GRANULOCYTE ABSOLUTE 0.02 K/uL (0-1); LYMPHOCYTES # (AUTO) 1.5 K/uL (1.0-4.8); LYMPHOCYTES % (AUTO) 23.1 % (21.0-51.0); MEAN CORPUSCULAR HEMOGLOBIN 29.7 pg (27.0-33.0); MEAN CORPUSCULAR HGB CONC 31.8 g/dL (32.0-36.0); MEAN CORPUSCULAR VOLUME 93.3 fL (79-99); MONOCYTES # (AUTO) 0.8 K/uL (0.1-1.0); MONOCYTES % (AUTO) 11.7 % (3.0-13.0); NEUTROPHILS # (AUTO) 4.1 K/uL (1.8-7.7); NEUTROPHILS % (AUTO) 62.3 % (40.0-77.0); PLATELET COUNT (AUTO) 137 K/uL (130-400); RED CELL DISTRIBUTION WIDTH 13.1 % (11.0-15.5); WHITE BLOOD COUNT (AUTO) 6.6 K/uL (4.8-10.8)
[2024-04-11 07:42] LABS: CREATININE 1.5 mg/dL (0.5-1.0); POTASSIUM 4.5 mmol/L (3.5-5.1)
[2024-04-11] MEDS: PANTOPRAZOLE 40 MG TAB DR PO SCH (09:01)
[2024-04-11] MEDS: EZETIMIBE 10 MG TAB PO SCH (09:01)
[2024-04-11] MEDS: ASPIRIN 81MG CHEW TAB PO SCH (09:01)
[2024-04-11] MEDS: FERROUS SULFATE 325 MG TABLET.DR PO SCH (09:01)
[2024-04-12] VITALS (7 sets, daily range): BP systolic 17–154; BP diastolic 51–94; PULSE 55–77; RESP 17–19; O2SAT 97
[2024-04-12] MEDS: 0.9%NACL 1000ML 1,000 ML IV SCH (04:36)
[2024-04-12] MEDS: ACETAMINOPHEN 500 MG TABLET PO PRN (04:36)
[2024-04-12 06:04] LABS: BASOPHILS # (AUTO) 0.02 K/uL (0.00-0.20); BASOPHILS % (AUTO) 0.3 % (0.0-5.0); EOSINOPHILS # (AUTO) 0.13 K/uL (0.00-0.70); EOSINOPHILS % (AUTO) 1.9 % (0.0-8.0); HEMATOCRIT 33.2 % (36-48); IMMATURE GRANULOCYTE ABSOLUTE 0.02 K/uL (0-1); LYMPHOCYTES # (AUTO) 1.4 K/uL (1.0-4.8); LYMPHOCYTES % (AUTO) 21.1 % (21.0-51.0); MEAN CORPUSCULAR HEMOGLOBIN 30.5 pg (27.0-33.0); MEAN CORPUSCULAR HGB CONC 31.9 g/dL (32.0-36.0); MEAN CORPUSCULAR VOLUME 95.4 fL (79-99); MONOCYTES # (AUTO) 0.7 K/uL (0.1-1.0); MONOCYTES % (AUTO) 10.3 % (3.0-13.0); NEUTROPHILS # (AUTO) 4.5 K/uL (1.8-7.7); NEUTROPHILS % (AUTO) 66.1 % (40.0-77.0); PLATELET COUNT (AUTO) 131 K/uL (130-400); RED BLOOD CELL COUNT(AUTO) 3.48 MIL/uL (4.00-5.50); RED CELL DISTRIBUTION WIDTH 12.9 % (11.0-15.5); WHITE BLOOD COUNT (AUTO) 6.8 K/uL (4.8-10.8)
[2024-04-12 06:20] LABS: CREATININE 1.5 mg/dL (0.5-1.0); MAGNESIUM 1.6 mg/dL (1.80-2.40); PHOSPHORUS 3.4 mg/dL (2.5-4.9); POTASSIUM 4.3 mmol/L (3.5-5.1)
[2024-04-12 06:34] LABS: % IRON SATURATION 16.1 % (22-44)
[2024-04-12] MEDS ORDERED: COMPOUND IV REFRIGERATED 1 EACH IVSOLN MISC PRN (09:30)
[2024-04-12] MEDS ORDERED: COMPOUND IV MISC 1 EACH IVSOLN MISC PRN (09:30)
[2024-04-12] MEDS: MAGNESIUM 2GM PREMIX 50ML 50 ML IV PRN (11:12)
[2024-04-12] MEDS: IRON SUCROSE COMPLEX 300 MG in 0.9% NACL 250ML 250 ML IV ONE (20:13)
[2024-04-12] MEDS: PSYLLIUM SEED 1 EACH PACKET PO SCH (20:14)
[2024-04-13] VITALS: BP 155/57; PULSE 63; RESP 18
[2024-04-13 04:00] VITALS: BP 149/63; PULSE 18; RESP 18
[2024-04-13 05:04] LABS: BASOPHILS # (AUTO) 0.03 K/uL (0.00-0.20); BASOPHILS % (AUTO) 0.3 % (0.0-5.0); EOSINOPHILS # (AUTO) 0.15 K/uL (0.00-0.70); EOSINOPHILS % (AUTO) 1.7 % (0.0-8.0); HEMATOCRIT 35.1 % (36-48); IMMATURE GRANULOCYTE ABSOLUTE 0.03 K/uL (0-1); LYMPHOCYTES # (AUTO) 1.5 K/uL (1.0-4.8); LYMPHOCYTES % (AUTO) 17.2 % (21.0-51.0); MEAN CORPUSCULAR HEMOGLOBIN 29.8 pg (27.0-33.0); MEAN CORPUSCULAR HGB CONC 32.5 g/dL (32.0-36.0); MEAN CORPUSCULAR VOLUME 91.9 fL (79-99); MONOCYTES # (AUTO) 0.9 K/uL (0.1-1.0); NEUTROPHILS # (AUTO) 6.1 K/uL (1.8-7.7); NEUTROPHILS % (AUTO) 70.5 % (40.0-77.0); PLATELET COUNT (AUTO) 140 K/uL (130-400); RED BLOOD CELL COUNT(AUTO) 3.82 MIL/uL (4.00-5.50); RED CELL DISTRIBUTION WIDTH 12.7 % (11.0-15.5); WHITE BLOOD COUNT (AUTO) 8.7 K/uL (4.8-10.8)
[2024-04-13 05:21] LABS: CREATININE 1.4 mg/dL (0.5-1.0); POTASSIUM 4.3 mmol/L (3.5-5.1)
[2024-04-13 08:00] VITALS: BP 163/77; PULSE 71; RESP 18; O2SAT 97
[2024-04-13 12:00] VITALS: BP 163/68; PULSE 71; RESP 20
[2024-04-13 16:00] VITALS: BP 164/70; PULSE 60; RESP 20
[2024-04-13 16:11] LABS: COLLECTION PERIOD,URINE 24 HR; TOTAL VOLUME 24HRS,URINE 3900 mL; TPROTEIN TIMED,URINE 6 mg/dL; TPROTEIN U,24HR CALC 234 mg/24HR (0-165)
[2024-04-14 01:10] LABS: C DIFFICILE TOXIN A/B Detected (Not Detected); ENTEROAGGREGATIVE ECOLI Not Detected (Not Detected); GIARDIA LAMBLIA Not Detected (Not Detected); PLESIOMONAS SHIGELOIDES Not Detected (Not Detected); SAPOVIRUS Not Detected (Not Detected); SHIGELLA/ENTEROINVASIVE E COLI Not Detected (Not Detected); VIBRIO Not Detected (Not Detected); VIBRIO CHOLERAE Not Detected (Not Detected)
[2024-04-19 18:10] LABS: 5-HIAA, QUANT. 24HR URINE 4.3 mg/24 hr (0.0-14.9)
== END 2024-04-13 17:45 | disposition home or self-care (01) | DRG 392 ==
LOC: EDH 12:36 → EDHIP 17:11 → 3BH 20:54
PROVIDERS: ADMIT Internal Medicine; ATTEND Internal Medicine
DX: K52.9 Noninfective gastroenteritis and colitis, unspecified (principal); N17.9 Acute kidney failure, unspecified; E86.0 Dehydration; I25.10 Atherosclerotic heart disease of native coronary artery without angina pectoris; D64.9 Anemia, unspecified; E11.22 Type 2 diabetes mellitus with diabetic chronic kidney disease; E11.40 Type 2 diabetes mellitus with diabetic neuropathy, unspecified; E78.00 Pure hypercholesterolemia, unspecified; I12.9 Hypertensive chronic kidney disease with stage 1 through stage 4 chronic kidney disease, or unspecified chronic kidney disease; N18.9 Chronic kidney disease, unspecified; N28.1 Cyst of kidney, acquired; Z86.73 Personal history of transient ischemic attack (TIA), and cerebral infarction without residual deficits; Z90.49 Acquired absence of other specified parts of digestive tract
CPT/HCPCS: 36415; 71045; 74176; 76770; 80048; 80053; 81001; 82550; 82570; 82784; 83036; 83497; 83516; 83540; 83550; 83630; 83690; 83735; 84100; 84145; 84156; 84300; 84443; 84484; 85025; 86140; 86231; 86364; 87088; 87324; 87507; 93005; 96361; 96374; 96375; G0378; J1756; J2270; J2405; J3475; J7030; J7050

== ENCOUNTER 2024-05-31 00:03 | Emergency (ER) | payer MEDICARE ==
[~2024-05-31] VITALS: Ht 152.4 cm; Wt 79.4 kg
[~2024-05-31 00:03] MED LIST changes: +GABA-529 PO; -METF-445 PO; -OLME-30 PO; +OLME40TA18 PO; -SERT-438 PO
[2024-05-31 00:51] LABS: BASOPHILS # (AUTO) 0.03 K/uL (0.00-0.20); BASOPHILS % (AUTO) 0.4 % (0.0-5.0); EOSINOPHILS # (AUTO) 0.07 K/uL (0.00-0.70); EOSINOPHILS % (AUTO) 0.9 % (0.0-8.0); HEMATOCRIT 34.8 % (36-48); IMMATURE GRANULOCYTE ABSOLUTE 0.02 K/uL (0-1); LYMPHOCYTES # (AUTO) 1.1 K/uL (1.0-4.8); LYMPHOCYTES % (AUTO) 13.8 % (21.0-51.0); MEAN CORPUSCULAR HEMOGLOBIN 30.3 pg (27.0-33.0); MEAN CORPUSCULAR HGB CONC 33.9 g/dL (32.0-36.0); MEAN CORPUSCULAR VOLUME 89.5 fL (79-99); MONOCYTES # (AUTO) 1.3 K/uL (0.1-1.0); MONOCYTES % (AUTO) 15.6 % (3.0-13.0); NEUTROPHILS # (AUTO) 5.6 K/uL (1.8-7.7); NEUTROPHILS % (AUTO) 69.1 % (40.0-77.0); PLATELET COUNT (AUTO) 138 K/uL (130-400); RED BLOOD CELL COUNT(AUTO) 3.89 MIL/uL (4.00-5.50); RED CELL DISTRIBUTION WIDTH 12.9 % (11.0-15.5); WHITE BLOOD COUNT (AUTO) 8.1 K/uL (4.8-10.8)
[2024-05-31 01:01] LABS: CREATININE 1.7 mg/dL (0.5-1.0); POTASSIUM 4.4 mmol/L (3.5-5.1)
[2024-05-31 01:05] LABS: ALBUMIN 3.8 g/dL (3.5-5.0); BILIRUBIN,TOTAL 0.6 mg/dL (0.2-1.0); TOTAL PROTEIN, SERUM 7.6 g/dL (6.0-8.3)
[2024-05-31 01:32] LABS: B-TYPE NATRIURETIC PEPTIDE 170 pg/mL (0-100)
[2024-05-31 01:58] LABS: APPEARANCE,URINE CLEAR (CLEAR); BILIRUBIN,URINE NEGATIVE (NEGATIVE); COLOR,URINE LIGHT-YELLOW (YELLOW); GLUCOSE, URINE (UA) NEGATIVE (NEGATIVE); KETONES,URINE NEGATIVE (NEGATIVE); LEUKOCYTE ESTERASE ,URINE 500 Leu/uL (NEGATIVE); NITRATE,URINE NEGATIVE (NEGATIVE); OCCULT BLOOD,URINE NEGATIVE (NEGATIVE); PH,URINE 5.5 (5.0-8.0); PROTEIN,URINE NEGATIVE (NEGATIVE); UROBILINOGEN,URINE 0.2 mg/dL (0.2-1.0)
[2024-05-31 02:05] LABS: ADD UA MICROSCOPIC YES
[2024-05-31 02:08] LABS: BACTERIA,URINE RARE /HPF (None Seen); SQUAMOUS EPITHELIAL CELL,UR RARE /HPF (0-2); WBC,URINE 26-50 /HPF (0-1)
[2024-05-31] MEDS: CEFTRIAXONE 1G VIAL IVPB ONE (03:21)
[2024-05-31] MEDS: FUROSEMIDE 40MG VIAL IV ONE (03:59)
[2024-05-31 04:08] VITALS: BP 126/53; PULSE 69; RESP 18; O2SAT 98
[2024-05-31] MEDS ORDERED: CIPR500T10 PO (04:21)
== END 2024-05-31 04:37 | disposition home or self-care (01) ==
LOC: EDH 00:03
DX: I11.0 Hypertensive heart disease with heart failure (principal); I50.9 Heart failure, unspecified; N39.0 Urinary tract infection, site not specified; E78.00 Pure hypercholesterolemia, unspecified; K21.9 Gastro-esophageal reflux disease without esophagitis; Z79.82 Long term (current) use of aspirin; Z79.899 Other long term (current) drug therapy; Z95.1 Presence of aortocoronary bypass graft; Z98.890 Other specified postprocedural states
CPT/HCPCS: 99285; 96365; 70450; 71045; 96375; 84484; 80053; 83880; 85025; 87086; 81001; 36415; 93005; J0696; J1940

== ENCOUNTER → 2025-02-01 | Outpatient (CLI) | payer MEDICARE ==
[~2025-02-01] MED LIST changes: +CIPR500T10 PO
[2025-02-01 16:31] LABS: CREATININE 1.6 mg/dL (0.5-1.0); POTASSIUM 4.3 mmol/L (3.5-5.1)
== END | disposition home or self-care (01) ==
LOC: LAB 11-17 13:00
PROVIDERS: ATTEND Internal Medicine Cardiovascular Disease
DX: I10 Essential (primary) hypertension (principal)
CPT/HCPCS: 36415; 80048

== ENCOUNTER 2025-04-30 11:55 | Observation (INO) | payer MEDICARE ==
[~2025-04-30] VITALS: Ht 157.5 cm; Wt 75.8 kg
[~2025-04-30 11:55] MED LIST changes: +CIPR-514 PO; -CIPR500T10 PO
[2025-04-30] MEDS: 0.9%NACL 1000ML 1,000 ML IV ONE (12:17)
[2025-04-30] MEDS: PROCHLORPERAZINE 10MG/2ML INJ IV ONE (12:17)
[2025-04-30] MEDS: DiphenhydrAMINE HCL 50 MG/ML VIAL IV ONE (12:17)
[2025-04-30] MEDS: acetaMINOPHEN 500 MG TABLET PO ONE (12:18)
[2025-04-30 12:21] LABS: BASOPHILS # (AUTO) 0.02 K/uL (0.00-0.20); BASOPHILS % (AUTO) 0.3 % (0.0-5.0); EOSINOPHILS # (AUTO) 0.08 K/uL (0.00-0.70); EOSINOPHILS % (AUTO) 1.2 % (0.0-8.0); HEMATOCRIT 35.7 % (36-48); IMMATURE GRANULOCYTE ABSOLUTE 0.02 K/uL (0-1); LYMPHOCYTES # (AUTO) 1.4 K/uL (1.0-4.8); MEAN CORPUSCULAR HEMOGLOBIN 31.1 pg (27.0-33.0); MEAN CORPUSCULAR HGB CONC 33.6 g/dL (32.0-36.0); MEAN CORPUSCULAR VOLUME 92.5 fL (79-99); MONOCYTES # (AUTO) 0.6 K/uL (0.1-1.0); NEUTROPHILS # (AUTO) 4.6 K/uL (1.8-7.7); NEUTROPHILS % (AUTO) 68.2 % (40.0-77.0); PLATELET COUNT (AUTO) 149 K/uL (130-400); RED BLOOD CELL COUNT(AUTO) 3.86 MIL/uL (4.00-5.50); RED CELL DISTRIBUTION WIDTH 13.1 % (11.0-15.5); WHITE BLOOD COUNT (AUTO) 6.7 K/uL (4.8-10.8)
[2025-04-30 12:28] LABS: CREATININE 1.4 mg/dL (0.5-1.0); POTASSIUM 4.5 mmol/L (3.5-5.1)
[2025-04-30 14:13] LABS: APPEARANCE,URINE CLEAR (CLEAR); BILIRUBIN,URINE NEGATIVE (NEGATIVE); COLOR,URINE LIGHT-YELLOW (YELLOW); GLUCOSE, URINE (UA) NEGATIVE (NEGATIVE); KETONES,URINE NEGATIVE (NEGATIVE); LEUKOCYTE ESTERASE ,URINE 250 Leu/uL (NEGATIVE); NITRATE,URINE NEGATIVE (NEGATIVE); OCCULT BLOOD,URINE NEGATIVE (NEGATIVE); PROTEIN,URINE NEGATIVE (NEGATIVE); UROBILINOGEN,URINE 0.2 mg/dL (0.2-1.0)
--- NOTE | 2025-04-30 14:14 | ERN ---
General Chief Complaint: Headache Stated Complaint: HEADACHE Time Seen by MD: 11:57 Source: patient History of Present Illness Initial Comments Patient is a 79-year-old female coming in to be evaluated for occipital headache. Patient states that he has been advanced to a couple of days. No fever no chills. Allergies: Coded Allergies: No Known Drug Allergies (Unverified Allergy, Unknown, 04/25/14) Home Meds Active Scripts Ciprofloxacin HCl (Ciprofloxacin HCl) 500 Mg Tablet, 500 MG PO BID for 7 Days, #14 TAB Prov:FAM CORTÉS MD 05/31/24 Ezetimibe (Ezetimibe) 10 Mg Tablet, 10 MG PO DAILY for 30 Days, #30 TAB Prov:BASIL LAMAS NP 04/10/20 Aspirin (ASPIRIN 81MG CHEW TAB) 81 Mg Tab.chew, 81 MG PO DAILY for 30 Days, #30 TAB.CHEW Prov:BASIL ALMAS NP 04/10/20 Amlodipine Besylate (Norvasc 5Mg Tab) 5 Mg Tablet, 5 MG PO HS for 30 Days, #30 TAB Prov:BASIL LAMAS I TICKET CLERK 04/10/20 Reported Medications Gabapentin (Gabapentin) 100 Mg Capsule, 200 MG PO BID, CAP 04/10/24 Olmesartan Medoxomil (Olmesartan Medoxomil) 40 Mg Tablet, 40 MG PO DAILY, TAB 04/10/24 Ferrous Sulfate (Ferrous Sulfate) 325 Mg Ectab, 325 MG PO DAILY, TAB.EC 09/01/21 Alendronate Sodium (Alendronate Sodium) 70 Mg Tablet, 70 MG PO QMONTH, TAB 09/01/21 Labetalol HCl (Labetalol HCl) 100 Mg Tablet, 200 MG PO BID, TAB 09/01/21 Pantoprazole Sodium (Pantoprazole Sodium) 40 Mg Tablet.dr, 40 MG PO DAILY, TAB 09/01/21 Atorvastatin Calcium (Atorvastatin Calcium) 40 Mg Tablet, 40 MG PO HS, #90 06/21/17 Past Medical History Past Medical History: High Cholesterol, Hypertension Medical History Other: HX OF TRIPLE BYPASS (2017); HX OF CVA (2017) Past Surgical History: Cholecystectomy, CABG Surgical History Other: LT FOOT SX, LT KNEE SX Female( History) History: Not Applicable ROS Dictation CONSTITUTIONAL: No chills, no fever, weakness, no diaphoresis, no malaise. HEAD/FACE: No signs of trauma. EENT: No eye pain, no blurred vision, no tearing, no double vision, no ear pain, no ear discharge, no nose pain, no nasal congestion, no throat pain, no throat swelling, no mouth pain. RESPIRATORY: No cough, no orthopnea, no SOB, no stridor, no wheezing. CARDIOVASCULAR: No chest pain, no edema, no palpitations, no syncope. GASTROINTESTINAL/ABDOMINAL: No abdominal pain, no constipation, no diarrhea, no nausea, no vomiting. GENITOURINARY: No abnormal discharge, no dysuria, no frequent urination, no hematuria. No complaints of pain in the genitals. MUSCULOSKELETAL: No back pain, no gout, no joint pain, no joint swelling, no muscle pain, no muscle stiffness, no neck pain. INTEGUMENTARY: No change in color, no change in hair/nails, no dryness, no lesion, no lumps, no rash. NEUROLOGICAL/PSYCH: No anxiety, not depressed, no emotional problem, no headache, no numbness, no pre-existing deficit, no history of seizures, no tremors, no weakness. HEMATOLOGIC/LYMPHATIC: Not anemic, no history of blood clots, no apparent bleeding, no bruising, glands not swollen. All Systems Negative, Except as Noted. Physical Exam Physical Exam Dictation VITAL SIGNS: Reviewed. GENERAL APPEARANCE: Alert, oriented x3, no acute distress, obese. HEAD AND FACE: Non-traumatic. EYES: PERRL, pink conjunctivas, eyelid no trauma, anterior chamber clear. EARS: Pinnas intact and no signs of trauma or erythema. Ear canals clear and no discharge. TMs no erythema. NOSE: No discharge, no bleeding. OROPHARYNX: Mouth normal, teeth no caries, tongue pink. Pharynx clear, no erythema. Tonsils no exudates, no abscesses noted. Mucous membrane moist. NECK: Supple, non-tender, no thyromegaly, no masses, no JVD, no bruits. BREAST: Deferred. CHEST: No tenderness, no crepitus, no paradoxical movement, no retractions. LUNGS: Clear, well-ventilated, symmetric, no rales, no wheezing, no rhonchi, no stridor, good breath sounds bilaterally. HEART: Regular rate, regular rhythm, no murmur, no gallops. VASCULAR: No peripheral edema. ABDOMEN: Soft, positive bowel sounds, nondistended, no guarding, nontender, no rebound, no masses no hepatomegaly, no splenomegaly, no Payne's sign, no hernias. RECTAL: Deferred. GENITAL: Deferred. NEUROLOGICAL: Normal speech, gross motor function intact, gross sensory function intact. MUSCULOSKELETAL: Neck nontender, full range of motion, back nontender, full range of motion. EXTREMITIES: Nontender, full range of motion. SKIN: Color pink, dry, no turgor, no rash, no lacerations, no abrasions, no contusions. LYMPHATICS: Deferred. Results Laboratory and Microbiology Lab and Micro Result Laboratory Tests Test 04/30/25 12:14 04/30/25 13:28 White Blood Count 6.7 K/uL (4.8-10.8) Red Blood Count 3.86 MIL/uL (4.00-5.50) L Hemoglobin 12.0 g/dL (12.0-16.0) Hematocrit 35.7 % (36-48) L Mean Corpuscular Volume 92.5 fL (79-99) Mean Corpuscular Hemoglobin 31.1 pg (27.0-33.0) Mean Corpuscular Hemoglobin Concent 33.6 g/dL (32.0-36.0) Red Cell Distribution Width 13.1 % (11.0-15.5) Platelet Count 149 K/uL (130-400) Mean Platelet Volume 12.1 fL (7.5-10.5) H Immature Granulocyte % (Auto) 0.3 % (0-1) Neutrophils (%) (Auto) 68.2 % (40.0-77.0) Lymphocytes (%) (Auto) 21.0 % (21.0-51.0) Monocytes (%) (Auto) 9.0 % (3.0-13.0) Eosinophils (%) (Auto) 1.2 % (0.0-8.0) Basophils (%) (Auto) 0.3 % (0.0-5.0) Neutrophils # (Auto) 4.6 K/uL (1.8-7.7) Lymphocytes # (Auto) 1.4 K/uL (1.0-4.8) Monocytes # (Auto) 0.6 K/uL (0.1-1.0) Eosinophils # (Auto) 0.08 K/uL (0.00-0.70) Basophils # (Auto) 0.02 K/uL (0.00-0.20) Absolute Immature Granulocyte (auto 0.02 K/uL (0-1) Nucleated Red Blood Cells 0.0 % (0.0-0.19) Sodium Level 140 mmol/L (136-145) Potassium Level 4.5 mmol/L (3.5-5.1) Chloride Level 104 mmol/L (101-111) Carbon Dioxide Level 30 mmol/L (21-32) Blood Urea Nitrogen 25 mg/dL (7-18) H Creatinine 1.4 mg/dL (0.5-1.0) H Glomerular Filtration Rate Calc 38 mL/min (>90) Random Glucose 127 mg/dL (70-105) H Total Calcium 8.7 mg/dL (8.5-10.1) Urine Color LIGHT-YELLOW (YELLOW) Urine Appearance CLEAR (CLEAR) Urine pH 5.0 (5.0-8.0) Urine Specific [place] 1.006 (1.001-1.031) Urine Protein NEGATIVE mg/dL (NEGATIVE) Urine Glucose (UA) NEGATIVE mg/dL (NEGATIVE) Urine Ketones NEGATIVE mg/dL (NEGATIVE) Urine Occult Blood NEGATIVE (NEGATIVE) Urine Nitrate NEGATIVE (NEGATIVE) Urine Bilirubin NEGATIVE mg/dL (NEGATIVE) Urine Urobilinogen 0.2 mg/dL (0.2-1.0) Urine Leukocyte Esterase 250 Isai/uL (NEGATIVE) H Urine RBC 0-1 /HPF (0-1) Urine WBC 6-10 /HPF (0-1) H Urine Squamous Epithelial Cells RARE /HPF (0-2) Urine Bacteria RARE /HPF (None Seen) Labs Reviewed?: Yes EKG/XRAY/US/CT/MRI CT Scan Comment [place] [id number] [address] IMAGING REPORT Signed PATIENT: CHARY EATON MR#: [id number] : 1945 SEX: F AGE: 79 LOCATION: [facility] ORDER 1207 STATUS: REG ER REPORT#: [id number] SERVICE 1206 REASON: headache ORDERING PHYSICIAN: TERRANCE SRIVASTAVA MD PROCEDURE: HEAD WO - CT HEAD/BRAIN W/O CONTRAST CT HEAD/BRAIN W/O CONTRAST HISTORY: Headaches COMPARISON: None TECHNIQUE: Multiple sequential axial images of the head were obtained from the base of the skull through vertex. Patient was not given contrast through intravenous route. FINDINGS: The ventricles and extraventricular CSF spaces are dilated consistent with cerebral atrophy. Nonspecific white matter changes seen. 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 There is no midline shift, mass effect or herniation. No acute intracranial bleed is seen. Visualized portion of the paranasal sinuses are grossly within normal limits. IMPRESSION: 1. No acute intracranial bleed is seen. 2. Atrophy with white matter changes. 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 DICTATED BY: WAQAS SANCHEZ MD DATE: 04/30/25 141 ELECTRONICALLY SIGNED BY: WAQAS SANCHZE MD DATE: 04/30/25 1413 [facility] MDM: Differential diagnosis: Dehydration, headache, uti Rationale: Tests considered and ordered secondary to shared decision making include: labs, ECG and radiology Previous outside records reviewed: Old ER visits. Risk of complication and/or morbidity or mortality of patient management: None Medications-Per medication reconciliation Need for hospitalization: Patient does meet criteria for hospitalization. Need for emergency major/minor surgery: No There are no social concerns with this patient. Prescription drug management Prescriptions will include symptomatic care Patient's prior external medical records from other ER visits were reviewed by me as indicated. Prior testing and results from previous visits were reviewed. Prior tests were taken into account with medical decision making and resource utilization, independent historian/historians were used to obtain complete medical history. I independently interpreted the test that were performed, results were reviewed by me and considered findings on radiology if ordered. Medical management and examination interpretation discussions were had by me with other qualified healthcare professionals as indicated for the patient's care. Patient will be admitted under the care of hospitalist group for ongoing management ED Course Orders Procedure Category Date Status Time Cbc With Differential LAB 04/30/25 Complete 11:59 Basic Metabolic Panel LAB 04/30/25 Complete 11:59 Urinalysis LAB 04/30/25 Complete W/Microscopic 11:59 0.9%Nacl 1000ml (Ns PHA 04/30/25 Complete 1000ml) 12:00 Diphenhydramine Hcl PHA 04/30/25 Complete (Benadryl Inj) 12:00 Prochlorperazine PHA 04/30/25 Complete 10mg/2ml Inj 12:00 Acetaminophen 500mg PHA 04/30/25 Complete Tab (Tylenol 500mg T 12:00 Ct Head/Brain W/O CT 04/30/25 Resulted Contrast 12:06 Culture Urine HE 04/30/25 In Process 14:16 Current Medications Medications (Trade) Dose Ordered Sig/Alicia Route PRN Reason Start Time Stop Time Status Last Admin Dose Admin Acetaminophen (TYLenol 500MG TAB) 1,000 mg ONCE ONCE PO 04/30/25 12:00 04/30/25 12:04 DC 04/30/25 12:18 Diphenhydramine HCl (BENAdryl INJ) 25 mg ONCE ONCE IV 04/30/25 12:00 04/30/25 12:04 DC 04/30/25 12:17 Prochlorperazine Edisylate (Compazine 10mg/ 2ml Inj) 10 mg ONCE ONCE IV 04/30/25 12:00 04/30/25 12:04 DC 04/30/25 12:17 Sodium Chloride 1,000 ml @ 0 mls/hr ONCE ONCE IV 04/30/25 12:00 04/30/25 12:04 DC 04/30/25 12:17 Vital Signs Date Time Temp Pulse Resp B/P (MAP) Pulse Ox O2 Delivery O2 Flow Rate FiO2 04/30/25 12:29 98.2 65 16 150/55 98 Room Air* 0 21 04/30/25 11:57 98.8 68 18 151/58 97 Room Air DX & DISP Disposition: Inpatient Decision to Admit Time: 14:35 Departure Impression: Primary Impression: UTI (urinary tract infection) Additional Impressions: Dehydration, Acute kidney injury Condition: Stable Referrals: KIEL MINER MD (PCP) TERRANCE SRIVASTAVA MD Apr 30, 2025 14:14
[2025-04-30 14:17] LABS: BACTERIA,URINE RARE /HPF (None Seen); MUCUS,URINE RARE LPF (None Seen); RBC,URINE 0-1 /HPF (0-1); SQUAMOUS EPITHELIAL CELL,UR RARE /HPF (0-2)
[2025-04-30] MEDS ORDERED: ondanSETRON 4MG INJ IVP PRN (15:00)
[2025-04-30] MEDS ORDERED: acetaMINOPHEN 325 MG TAB PO PRN (15:00)
[2025-04-30] MEDS: 0.9%NACL 1000ML 1,000 ML IV SCH (15:11)
[2025-04-30] MEDS: cefTRIAXone 1G VIAL IVPB SCH (15:11)
[2025-04-30] MEDS ORDERED: hydrALAZine 20MG/ML VIAL IV PRN (15:30)
[2025-04-30 15:37] LABS: ALBUMIN 3.7 g/dL (3.5-5.0); BILIRUBIN,DIRECT 0.2 mg/dL (0.0-0.3); BILIRUBIN,TOTAL 0.6 mg/dL (0.2-1.0); MAGNESIUM 1.8 mg/dL (1.80-2.40); TOTAL PROTEIN, SERUM 7.3 g/dL (6.0-8.3)
--- NOTE | 2025-04-30 15:58 | HP ---
[facility] HISTORY AND PHYSICAL Date of Service: Apr 30, 2025 Time of Service: 15:51 HISTORY OF PRESENT ILLNESS: Date of service: 04/30/2025, patient was seen in ER room three 79-year-old female with underlying history of chronic kidney disease stage 3, coronary artery disease with prior history of coronary artery bypass grafting in 2017, hypertension, hyperlipidemia, who presented to the ER for further e valuation of right occipital headache ongoing for the past three days. Pain initially started as mild in intensity and was severe today. Pain was worsened with lateral rotation of the neck. Patient denies any headache, fevers or chills. Denies any neck stiffness. Patient has had previous headaches similar to this about a year ago. Patient also has been having increased urinary frequency. Denies any antibiotic allergies. Does report that she has underlying history of CKD and is followed by Dr. Scott as outpatient. Patient states that the occipital headache is almost minimal after receiving migraine cocktail of Tylenol, Compazine, Benadryl in the ER. On presentation to the hospital, patient was noted to be afebrile with T-max of 98.8 F, pulse of 68, blood pressure of 151/58. Labs on presentation showed WBC count of 6700, hemoglobin 12.0, platelet count of 075893. BMP remarkable for sodium of 140, potassium 4.5, CO2 of 30, BUN of 25, creatinine 1.4. Urinalysis with leukocyte esterase positive and pyuria. Patient underwent further evaluation with CT head without contrast which showed no acute intracranial bleed. Patient had findings of old infarct in the right cerebellar hemisphere which was previously noted on CT head from 2021 as well. Patient will be admitted for further monitoring of headache, patient will be started on IV antibiotics and gentle IV hydration. Consultation with Nephrology will be requested. Discussed with family that if patient has further episodes of occipital headache, we can consider getting a tele neuro consultation tomorrow if symptoms recur. Request made by ER provider for patient to be admitted for close monitoring with regards to headache as well as urinary tract infection. REVIEW OF SYSTEMS CONSTITUTIONAL: Denies fevers, chills, or night sweats. No unintentional weight loss reported. NEUROLOGICAL: Reports having right occipital headache ENT: No hearing loss, otalgia, otorrhea, rhinitis, rhinorrhea, hoarseness, or sore throat. CARDIOVASCULAR: Denies any exertional angina, dyspnea on exertion, orthopnea, paroxysmal nocturnal dyspnea, palpitations, life-threatening arrhythmias, claudication. PULMONARY: Denies any shortness of breath, cough, phlegm/sputum, hemoptysis, pleuritic chest pain. SLEEP: Denies morning headaches, daytime somnolence or napping. Denies difficulty falling asleep, staying asleep, waking from sleep. Denies knowledge of snoring. GASTROINTESTINAL: Reports having increased urinary frequency GENITOURINARY: Denies frequency, urgency, nocturia, hematuria or incontinence (Storage/Irritative symptoms.) Low urinary stream, straining to void, urinary intermittency or hesitancy, splitting of the voiding stream, terminal dribbling. ENDOCRINOLOGIC: Denies polyuria, polydipsia, polyphagia or heat/cold intolerances. HEMATOLOGIC: Denies thrombophilia/previous clots, or coagulopathy/bleeding disorders. ONCOLOGIC: Denies personal history of malignancy. DERMATOLOGIC: Denies rashes or pruritus. PSYCHIATRIC: Denies any suicidal or homicidal ideation. Denies hallucinations. PAST MEDICAL HISTORY: History of coronary artery disease, history of CVA in 2017, hypertension, hyperlipidemia, history of neuropathy PAST SURGICAL HISTORY: Coronary artery bypass grafting in 2017, history of cholecystectomy PAST SOCIAL HISTORY: Denies active smoking or alcohol consumption, patient is ambulatory at home FAMILY HISTORY: Denies pertinent family history Allergies: No known drug allergies Home medications: Discussed with patient's daughter to bring list of home medications to be reconciled and updated Coded Allergies: No Known Drug Allergies (Unverified Allergy, Unknown, 04/25/14) PHYSICAL EXAM GENERAL APPEARANCE: The patient is awake, alert, and oriented, in no acute cardiopulmonary distress. NEUROLOGICAL: Cranial nerves II-XII grossly intact. Motor is 5/5 in bilateral upper and lower extremities proximal to distal. No sensory deficits. HEENT: Face is symmetric. Pupils are equal and reactive. Extraocular movements are intact. NECK: Supple. No JVD. No thyromegaly. No submental, submandibular, pre- /postauricular, occipital or supraclavicular lymphadenopathy. CHEST: Normal chest expansion. No Telemetry. LUNGS: Absence of any rales, rhonchi or any wheezing. CARDIOVASCULAR: Regular. S1 and S2 normal. No appreciable rubs, murmurs or gallops. ABDOMEN: Soft, nontender, and nondistended. There is no rebound, voluntary guarding, or rigidity. : Deferred. No Bone. EXTREMITIES: Non-edematous and not cyanotic. No clubbing. Good capillary refill. SKIN: No skin breakdown. Vital Sign (Last 24 Hours) 04/30/25 12:29 Temp 98.2 Pulse 65 Resp 16 B/P (MAP) 150/55 Pulse Ox 98 O2 Delivery Room Air* O2 Flow Rate 0 FiO2 21 LABS: Laboratory: Test 04/30/25 13:28 04/30/25 12:14 Range/Units Urine Color LIGHT-YELLOW YELLOW Urine Appearance CLEAR CLEAR Urine pH 5.0 5.0-8.0 Urine Specific [place] 1.006 1.001-1.031 Urine Protein NEGATIVE NEGATIVE mg/dL Urine Glucose (UA) NEGATIVE NEGATIVE mg/dL Urine Ketones NEGATIVE NEGATIVE mg/dL Urine Occult Blood NEGATIVE NEGATIVE Urine Nitrate NEGATIVE NEGATIVE Urine Bilirubin NEGATIVE NEGATIVE mg/dL Urine Urobilinogen 0.2 0.2-1.0 mg/dL Urine Leukocyte Esterase 250 H NEGATIVE Isai/uL Urine RBC 0-1 0-1 /HPF Urine WBC 6-10 H 0-1 /HPF Urine Squamous Epithelial Cells RARE 0-2 /HPF Urine Bacteria RARE None Seen /HPF White Blood Count 6.7 4.8-10.8 K/uL Red Blood Count 3.86 L 4.00-5.50 MIL/uL Hemoglobin 12.0 12.0-16.0 g/dL Hematocrit 35.7 L 36-48 % Mean Corpuscular Volume 92.5 79-99 fL Mean Corpuscular Hemoglobin 31.1 27.0-33.0 pg Mean Corpuscular Hemoglobin Concent 33.6 32.0-36.0 g/dL Red Cell Distribution Width 13.1 11.0-15.5 % Platelet Count 149 130-400 K/uL Mean Platelet Volume 12.1 H 7.5-10.5 fL Immature Granulocyte % (Auto) 0.3 0-1 % Neutrophils (%) (Auto) 68.2 40.0-77.0 % Lymphocytes (%) (Auto) 21.0 21.0-51.0 % Monocytes (%) (Auto) 9.0 3.0-13.0 % Eosinophils (%) (Auto) 1.2 0.0-8.0 % Basophils (%) (Auto) 0.3 0.0-5.0 % Neutrophils # (Auto) 4.6 1.8-7.7 K/uL Lymphocytes # (Auto) 1.4 1.0-4.8 K/uL Monocytes # (Auto) 0.6 0.1-1.0 K/uL Eosinophils # (Auto) 0.08 0.00-0.70 K/uL Basophils # (Auto) 0.02 0.00-0.20 K/uL Absolute Immature Granulocyte (auto 0.02 0-1 K/uL Nucleated Red Blood Cells 0.0 0.0-0.19 % Sodium Level 140 136-145 mmol/L Potassium Level 4.5 3.5-5.1 mmol/L Chloride Level 104 101-111 mmol/L Carbon Dioxide Level 30 21-32 mmol/L Blood Urea Nitrogen 25 H 7-18 mg/dL Creatinine 1.4 H 0.5-1.0 mg/dL Glomerular Filtration Rate Calc 38 >90 mL/min Random Glucose 127 H 70-105 mg/dL Total Calcium 8.7 8.5-10.1 mg/dL Magnesium Level 1.80 1.80-2.40 mg/dL Total Bilirubin 0.6 0.2-1.0 mg/dL Direct Bilirubin 0.2 0.0-0.3 mg/dL Aspartate Amino Transf (AST/SGOT) 17 10-37 U/L Alanine Aminotransferase (ALT/SGPT) 20 12-78 U/L Alkaline Phosphatase 56 50-136 U/L C-Reactive Protein, Quantitative 5.40 H 0.5-3.0 mg/L Total Protein 7.3 6.0-8.3 g/dL Albumin 3.7 3.5-5.0 g/dL Procalcitonin < 0.05 L 0.05-0.5 ng/mL Current Medications Medications (Trade) Dose Ordered Sig/Alicia Route PRN Reason Start Time Stop Time Status Last Admin Dose Admin Acetaminophen (TYLenol 325MG TAB) 650 mg Q6H PRN PO MILD PAIN (1-3) 04/30/25 15:00 05/30/25 14:59 Amlodipine Besylate (NorvASC 5MG TAB) 5 mg DAILY PO 05/01/25 09:00 05/31/25 08:59 Ceftriaxone Sodium (ROCEphine 1G INJ) 1 gm Q24H IVPB 04/30/25 15:00 05/10/25 14:59 04/30/25 15:11 1 GM Enoxaparin Sodium (Lovenox) 30 mg DAILY SQ 05/01/25 09:00 05/31/25 08:59 Famotidine (Pepcid 20mg Vial) 20 mg QODAY IV 04/30/25 15:30 05/30/25 15:29 Gabapentin (NEURontin 100 mg CAP) 200 mg DAILY PO 05/02/25 09:00 06/01/25 08:59 Hydralazine HCl (APRESOLine 20MG INJ) 5 mg Q6H PRN IV ADMINISTER FOR SBP > 160 04/30/25 15:30 05/30/25 15:29 Labetalol HCl (TRANdate 100 MG TABLET) 300 mg BID PO 04/30/25 21:00 05/30/25 20:59 Ondansetron HCl (zoFRAN 4MG INJ) 4 mg Q6H PRN IVP NAUSEA/VOMITING 04/30/25 15:00 05/30/25 14:59 Sodium Chloride 1,000 ml @ 50 mls/hr Q20H IV 04/30/25 15:00 05/30/25 14:59 04/30/25 15:11 50 MLS/HR Vitamin B Complex/ Vit C/Folic Acid (Nephrovite Tablet) 1 cap DAILY PO 05/01/25 09:00 05/31/25 08:59 DIAGNOSTICS / RADIOLOGY: SERVICE 1206 REASON: headache ORDERING PHYSICIAN: TERRANCE SRIVASTAVA MD PROCEDURE: HEAD WO - CT HEAD/BRAIN W/O CONTRAST CT HEAD/BRAIN W/O CONTRAST HISTORY: Headaches COMPARISON: None TECHNIQUE: Multiple sequential axial images of the head were obtained from the base of the skull through vertex. Patient was not given contrast through intravenous route. FINDINGS: The ventricles and extraventricular CSF spaces are dilated consistent with cerebral atrophy. Nonspecific white matter changes seen. 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 There is no midline shift, mass effect or herniation. No acute intracranial bleed is seen. Visualized portion of the paranasal sinuses are grossly within normal limits. IMPRESSION: 1. No acute intracranial bleed is seen. 2. Atrophy with white matter changes. 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 DICTATED BY: WAQAS SANCHEZ MD DATE: 04/30/251409 ELECTRONICALLY SIGNED BY: WAQAS SANCHEZ MD DATE: 04/30/251412 ASSESSMENT: Acute occipital headache x3 days, resolving status post migraine cocktail, POA Mild dehydration, POA History of chronic kidney disease stage 3, POA Urinary tract infection, POA Underlying history of hypertension, POA Hyperlipidemia, POA Frailty, POA Octogenarian, POA History of coronary artery disease, POA Prior history of coronary artery bypass grafting, POA History of prior CVA in 2017, POA PLAN: Patient will be admitted to medical-surgical floor under telemetry monitoring Occipital headache is almost minimal since receiving migraine cocktail in the ER, we will keep patient on p.r.n. Tylenol 650 mg q.6 hours p.r.n. for pain control Discussed with daughter that if headache is persistent or recurs, we can get a tele neurology consultation for further evaluation tomorrow am, CT head without contrast showed changes of old stroke, patient denies any focal weakness of up per or lower extremities We will keep patient on gentle IV hydration with NS at 50 mL/hour We will start patient on IV antibiotics with Rocephin, we will follow up urine culture We will obtain a renal ultrasound We will request consultation with Nephrology Discussed with patient and daughter to see if we can obtain list of all her home medications, some of the antihypertensives including lebatolol, amlodipine will be restarted, losartan will be substituted for olmesartan as olmesartan is not formulary in [facility] All labs will be repeated in the morning Anticipate hospitalization for at least 24-48 hours, we will monitor neurologic symptoms closely, we will consider tele neurology consultation in case neurologic symptoms recur Date of service: 04/30/2025 Plan of care was discussed with patient at bedside, Kumar Ramírez MD Advanced Care Planning: Which of the following were discussed: Hospice care: Yes __ No _X_ Therapeutic options: Yes _X_ No __ Advance directives: Yes _X_ No __ Other discussions: Discussed with who?: Patient Voluntary nature of this service was explained to the patient? Yes _x_ No __ Amount of time spent: 20 minutes KUMAR RAMÍREZ MD Apr 30, 2025 15:58
[2025-04-30] MEDS: FAMOTIDINE 20MG VIAL IV SCH (16:41)
--- NOTE | 2025-04-30 18:00 | NUR ---
pt daughter brought med list at this time
--- NOTE | 2025-04-30 18:12 | HMCIMG ---
US RENAL SONOGRAM HISTORY: UTI COMPARISON: None TECHNIQUE: Renal and bladder ultrasound study was performed. FINDINGS: The right kidney measures 6.1 x 2.4 x 1.9 cm. The left kidney measures 10 x 3.7 x 4 cm. No evidence of hydronephrosis is seen of either kidney. Both kidneys are seen. Bladder is well distended. There is right upper pole simple renal cyst measuring 15 x 18 x 13 mm. IMPRESSION: 1. No hydronephrosis is seen.
[2025-04-30] MEDS ORDERED: DOXA2TAB2 PO (19:24)
[2025-04-30] MEDS ORDERED: CETI10TA87 PO (19:24)
[2025-04-30] MEDS ORDERED: IBAN150T21 PO (19:24)
[2025-04-30] MEDS ORDERED: FAMO40TA7 PO (19:24)
[2025-04-30] MEDS ORDERED: FOLI1TAB85 PO (19:24)
[2025-04-30] MEDS ORDERED: GABA-529 PO (19:24)
[2025-04-30] MEDS ORDERED: LABE300T4 PO (19:24)
[2025-04-30] MEDS ORDERED: ATOR20TA65 PO (19:24)
[2025-04-30] MEDS ORDERED: AMLO-257 PO (19:24)
[2025-04-30] MEDS ORDERED: OLME40TA18 PO (19:24)
[2025-04-30] MEDS: atorVAStatin 20 MG TABLET PO SCH (20:12)
[2025-04-30] MEDS: amLODIPine 5 MG TAB PO SCH (20:12)
[2025-04-30] MEDS: DOXAZOSIN MESYLATE 2 MG TABLET PO SCH (20:12)
[2025-04-30] MEDS: LoSARTan 100 MG TABLET PO SCH (20:12)
[2025-04-30] MEDS: LAbetaLOL HCL 100 MG TABLET PO SCH (20:12)
[2025-04-30 22:15] VITALS: BP 151/69; PULSE 63; RESP 22; TEMP 97.8
[2025-04-30 22:20] VITALS: O2SAT 98
[2025-05-01 04:00] VITALS: BP 149/72; PULSE 67; RESP 20; TEMP 98.1
[2025-05-01 05:04] LABS: ALBUMIN 3.3 g/dL (3.5-5.0); BILIRUBIN,TOTAL 0.6 mg/dL (0.2-1.0); CREATININE 1.2 mg/dL (0.5-1.0); MAGNESIUM 1.8 mg/dL (1.80-2.40); PHOSPHORUS 3.1 mg/dL (2.5-4.9); TOTAL PROTEIN, SERUM 6.9 g/dL (6.0-8.3); URIC ACID 6.4 mg/dL (2.6-7.2)
[2025-05-01 08:18] VITALS: BP 157/72; PULSE 83; RESP 18; TEMP 98.1
[2025-05-01] MEDS: EZETIMIBE 10 MG TAB PO SCH (08:30)
[2025-05-01] MEDS: ceTIRIzine HCL 5 MG TABLET PO SCH (08:30)
[2025-05-01] MEDS: GABApentin 100 MG CAPSULE PO SCH (08:31)
[2025-05-01] MEDS: Vitamin B Complex/Vit C/Folic Acid PO SCH (08:31)
[2025-05-01] MEDS: ASPIRIN 81MG CHEW TAB PO SCH (08:31)
[2025-05-01] MEDS: FERROUS SULFATE 325 MG TABLET.DR PO SCH (08:31)
[2025-05-01] MEDS: ENOXAPARIN SODIUM 30 MG/0.3 ML SQ SCH (08:33)
[2025-05-01] MEDS ORDERED: amLODIPine 5 MG TAB PO SCH (09:00)
[2025-05-01] MEDS ORDERED: Vitamin B Complex/Vit C/Folic Acid PO SCH (09:00)
[2025-05-01] MEDS ORDERED: MAGNESIUM 2GM PREMIX 50ML 50 ML IV SCH (09:30)
--- NOTE | 2025-05-01 10:50 | CONS ---
NEPHROLOGY CONSULTATION REASON FOR CONSULTATION: Renal failure. HISTORY OF PRESENT ILLNESS: This patient is an 79-year-old lady who has underlying coronary artery disease, CABG, hypertension, and hyperlipidemia. The patient is admitted with shortness of breath. The patient has underlying CKD. She follows up in the office. The patient has no other associated finding. No other aggravating or relieving. Elevated creatinine of 1.4. PAST MEDICAL HISTORY: Coronary artery disease, CVA, hypertension, hyperlipidemia, and neuropathy. PAST SURGICAL HISTORY: CABG and cholecystectomy. SOCIAL HISTORY: No smoking, alcohol, or drug abuse. FAMILY HISTORY: Negative for kidney cyst or stone. ALLERGIES: None. REVIEW OF SYSTEMS: CONSTITUTIONAL: Has been weak. No fever, chills, or rigors. She has headache. HEENT: No oral ulcer, sore throat, or difficulty swallowing. RESPIRATORY: No cough, expectoration, or hemoptysis. CARDIOVASCULAR: No chest pain, orthopnea, or PND. GASTROINTESTINAL: Negative for nausea or vomiting. GENITOURINARY: Some urinary frequency and no other findings. DERMATOLOGIC: No rashes or pruritus. NEUROLOGIC: No seizures, syncope, or headache reported. LYMPHATIC: With no lymph node swelling in neck or axillary area. PSYCHIATRIC: Negative for anxiety or depression. PHYSICAL EXAMINATION: GENERAL: Pale. No other distress or deformities, lying in bed. VITAL SIGNS: Blood pressure 151/58, pulse is 68, respiratory rate is 18. HEENT: Head is atraumatic and normocephalic. Pupils are round and reactive. Sclerae anicteric. Conjunctivae not pale. Oral mucosa is not dry. NECK: Without masses or bruits. Thyroid is palpable. Neck has no bruits. CHEST: Shows equal thoracic percussion note being resonant in all areas. CARDIAC: Regular rhythm. No rub, no S3 or S4. ABDOMEN: No guarding or tenderness. Bowel sounds present. No free fluid. EXTREMITIES: No edema. No cyanosis or clubbing. BACK: No tenderness, no back deformities. LYMPHATIC: With no lymph node swelling in the neck or axillary area. NEUROLOGIC: Awake, alert, and nonfocal. No cranial nerve palsy. No motor or sensory deficits. SKIN: No other petechiae or rashes on inspection. LABORATORY DATA: Hemoglobin of 12, creatinine of 1.4, BUN of 25, other electrolytes are reviewed. C-reactive protein is high. Albumin is 3.7. Urine has some pyuria but no other significant findings. IMAGING STUDIES: Head CT has been negative. Renal ultrasound, no hydronephrosis and was personally reviewed. PROBLEMS: This patient has underlying: * Admission with headache. * Has underlying hypertension. * CKD. * The patient has UTI possibly. * Hyperlipidemia. * Elderly lady. * Coronary artery disease with CABG. * History of CVA. PLAN: * The patient is being admitted. * The patient can be given IV Dilaudid 0.5 q.6 only if pain is severe. * The patient will have a further neurological workup. * The patient will get continued monitoring of renal function and electrolytes. * Followup on cultures. * Intake and output weight will be monitored. * Nonsteroidal drugs will be avoided. * Dose of medicine to be adjusted. * Continued followup on renal function, electrolytes, and overall status. * Please avoid contrast, nonsteroidal drugs, and nephrotoxic drugs. * We have discussed with other team physicians. * We have reviewed the external records, old records, previous records, and reviewed the labs, x-rays personally and imaging studies are personally reviewed, and follow-up labs and x-rays have been ordered. * Condition remains guarded, seen several times. Thank you for this patient. TID: [id number] RECEIPT: [id number]
--- NOTE | 2025-05-01 11:09 | NUR ---
DCP: HOME Pt currently lives with Norman Lewis [phone] in their home. Pt does not have insecurities with food, [facility], and/or utilities. Pt does not use DME. Pt has a provider that goes to the home once a week for 8hrs to assist with home management. PCP is Dr. Pérez Chahal and uses [facility] for any RX needs. At [place] pt will go home and family will assist with transportation. Addendum: 05/01/25 at 1111 by ADAN LIMON SS Amended: Links added.
[2025-05-01 11:45] VITALS: BP 146/68; PULSE 71; RESP 16; TEMP 97.8
[2025-05-01] MEDS ORDERED: ATOR20TA65 PO (12:40)
[2025-05-01] MEDS ORDERED: FERR324T4 PO (12:40)
[2025-05-01] MEDS ORDERED: LEVO250T75 PO (12:40)
[2025-05-01] MEDS ORDERED: EZET10TA81 PO (12:40)
[2025-05-01] MEDS ORDERED: DOXA2TAB2 PO (12:40)
[2025-05-01] MEDS ORDERED: CYCL10TA16 PO (12:40)
[2025-05-01] MEDS ORDERED: ASPI-1005 PO (12:40)
[2025-05-01] MEDS ORDERED: GABA100C PO (12:40)
[2025-05-01] MEDS ORDERED: LOSA-420 PO (12:40)
[2025-05-01] MEDS ORDERED: LABE100T7 PO (12:40)
--- NOTE | 2025-05-01 12:46 | DS ---
Discharge Summary Hospital Course Summary: DATE OF ADMISSION:[04/30/2025] DATE OF DISCHARGE:[05/01/2025] DISPOSITION:[Home] CONDITION:[Medically stable] CONSULTANTS:[Diesel Truck Technician] FOLLOW UP APPOINTMENTS:[PCP2 to 3 days. Diesel Truck Technician within once the] PROCEDURES:[O none] IMAGING: report attached to summary MICROBIOLOGY: report attached to summary ACTIVITY:[Dependent] HOME MEDICATIONS: see med rec NEW MEDICATIONS:[Aspirin, atorvastatin, Lexapro, doxazosin, Zetia, ferrous sulfa te, gabapentin, labetalol, levofloxacin, losartan] EMERGENCY INSTRUCTIONS: The patient was instructed to present to the nearest Emergency departmentr or call 911 once their symptoms will return or worsen Director Of Hemophilia(s): Patient is 79 years old female with underlying history of CKD stage 3, Coronary Artery Disease, coronary artery bypass grafting 2016, hypertension, hyperlipidemia who came to emergency department for evaluation for the right occipital headache ongoing for the past3 to 4 days. Patient stated that her headache was mild in intensity it was there severe on day on of admission. Pain was worsened with a lateral rotation of the neck. Patient was denying any headaches fevers or chills. Regarding the CKD patient was followed by Dr. Scott outpatient. On admission urinalysis was positive for leukocytosis patient was placed on Rocephin. Patient was evaluated by the mammography supervisor renal ultrasound was negative. As per mammography supervisor continue to follow the patient. Today creatinine is 1.2 BUN 18 GFR 46 which has much improved from the previous day. Regarding the occipital headache patient denied any headaches patient stated that she only had a little neck stiffness on the right side which has gone away since yesterday. Due to not having any neurosurgeon or neurologist on-call today we will recommend that patient follows outpatient. Head CT was negative it showed only old infarct in the right cerebral hemisphere. Patient is cleared to be discharged home follow up with PCP in2 to 3 days. Follow up with mammography supervisor within one week. Follow up with neurosurgeon within one week. Patient will be discharged on levofloxacin for UTI. Patient and family updated regards to further plan. Procedure(s): REVIEW OF SYSTEMS CONSTITUTIONAL: Denies fevers, chills, or night sweats. No unintentional weight loss reported. NEUROLOGICAL: Denies any occipital headaches ENT: No hearing loss, otalgia, otorrhea, rhinitis, rhinorrhea, hoarseness, or sore throat. CARDIOVASCULAR: Denies any exertional angina, dyspnea on exertion, orthopnea, paroxysmal nocturnal dyspnea, palpitations, life-threatening arrhythmias, claudication. PULMONARY: Denies any shortness of breath, cough, phlegm/sputum, hemoptysis, pleuritic chest pain. SLEEP: Denies morning headaches, daytime somnolence or napping. Denies difficulty falling asleep, staying asleep, waking from sleep. Denies knowledge of snoring. GASTROINTESTINAL: Patient denies any urinary frequency GENITOURINARY: Denies frequency, urgency, nocturia, hematuria or incontinence (Storage/Irritative symptoms.) Low urinary stream, straining to void, urinary intermittency or hesitancy, splitting of the voiding stream, terminal dribbling. ENDOCRINOLOGIC: Denies polyuria, polydipsia, polyphagia or heat/cold intolerances. HEMATOLOGIC: Denies thrombophilia/previous clots, or coagulopathy/bleeding disorders. ONCOLOGIC: Denies personal history of malignancy. DERMATOLOGIC: Denies rashes or pruritus. PSYCHIATRIC: Denies any suicidal or homicidal ideation. Denies hallucinations. Assessment/Plan: ASSESSMENT: Acute occipital headache x3 days, resolving status post migraine cocktail, POA Mild dehydration, POA History of chronic kidney disease stage 3, POA Urinary tract infection, POA Underlying history of hypertension, POA Hyperlipidemia, POA Frailty, POA Octogenarian, POA History of coronary artery disease, POA Prior history of coronary artery bypass grafting, POA History of prior CVA in 2017, POA Home Medications: Active Scripts Ezetimibe (Ezetimibe) 10 Mg Tablet, 10 MG PO DAILY for 30 Days, #30 TAB Prov:BASIL ALMAS NP 04/10/20 Aspirin (ASPIRIN 81MG CHEW TAB) 81 Mg Tab.chew, 81 MG PO DAILY for 30 Days, #30 TAB.CHEW Prov:BASIL LAMAS NP 04/10/20 Reported Medications Atorvastatin Calcium (Atorvastatin Calcium) 20 Mg Tablet, 1 TAB PO HS for 30 Days, #30 TAB 0 Refills 04/30/25 Amlodipine Besylate (Amlodipine Besylate) 5 Mg Tablet, 1 TAB PO HS for 30 Days, #30 TAB 0 Refills 04/30/25 Olmesartan Medoxomil (Olmesartan Medoxomil) 40 Mg Tablet, 1 TAB PO PCDINNER for 30 Days, #30 TAB 0 Refills 04/30/25 Vit B Cmplx 3/FA/Vit C/Biotin (Manuela-Miguel Rx Tablet) 1 Mg-60 Mg-300 Mcg Tablet, 1 TAB PO DAILY for 30 Days, #30 TAB 0 Refills 04/30/25 Cetirizine HCl (Cetirizine HCl) 10 Mg Tab.chew, 1 TAB PO DAILY for allergy symptoms for 30 Days, #30 TAB 0 Refills 04/30/25 Famotidine (Famotidine) 40 Mg Tablet, 1 TAB PO DAILY for 30 Days, #30 TAB 0 Refills 04/30/25 Gabapentin (Gabapentin) 100 Mg Capsule, 1 CAP PO BID for 30 Days, #90 CAP 0 Refills 04/30/25 Doxazosin Mesylate (Doxazosin Mesylate) 2 Mg Tablet, 1 TAB PO BID for 30 Days, #30 TAB 0 Refills 04/30/25 Labetalol HCl (Labetalol HCl) 300 Mg Tablet, 1 TAB PO BID for 30 Days, #60 TAB 0 Refills 04/30/25 Ibandronate Sodium (Ibandronate Sodium) 150 Mg Tablet, 1 TAB PO QMONTH for 30 Days, #1 TAB 0 Refills 04/30/25 Ferrous Sulfate (Ferrous Sulfate) 325 Mg Ectab, 325 MG PO DAILY, TAB.EC 09/01/21 Discontinued Reported Medications Gabapentin (Gabapentin) 100 Mg Capsule, 200 MG PO BID, CAP 04/10/24 Olmesartan Medoxomil (Olmesartan Medoxomil) 40 Mg Tablet, 40 MG PO DAILY, TAB 04/10/24 Alendronate Sodium (Alendronate Sodium) 70 Mg Tablet, 70 MG PO QMONTH, TAB 09/01/21 Labetalol HCl (Labetalol HCl) 100 Mg Tablet, 200 MG PO BID, TAB 09/01/21 Pantoprazole Sodium (Pantoprazole Sodium) 40 Mg Tablet.dr, 40 MG PO DAILY, TAB 09/01/21 Atorvastatin Calcium (Atorvastatin Calcium) 40 Mg Tablet, 40 MG PO HS, #90 06/21/17 Discontinued Scripts Ciprofloxacin HCl (Ciprofloxacin HCl) 500 Mg Tablet, 500 MG PO BID for 7 Days, #14 TAB Prov:FAM CORTÉS MD 7/16/24 Amlodipine Besylate (Norvasc 5Mg Tab) 5 Mg Tablet, 5 MG PO HS for 30 Days, #30 TAB Prov:BASIL LAMAS Juan Carlos FUNCTIONAL SUPPORT ANALYST 04/10/20 Time spent arranging discharge: 31-60 minutes ATTESTATION BY PHYSICIAN I have seen and examined the patient. I reviewed the documentation, medical decision making, and treatment plan as noted by the mid-level provider above. I agree with the findings and plan of care. PRITI JACOB MD, KATARZYNA B RETAIL AND PROMOTIONS COORDINATOR May 01, 2025 12:46
--- NOTE | 2025-05-01 14:10 | NUR ---
DISCHARGE Pt sitting in bed w/ eyes open 0 s/s of distress noted A&Ox4 able to make needs known. Daughter @ bedside. Discharge instructions gievn to pt and family verbally and written. PT and family verbally acknowledged understanding. IV removed intact without complications. PT escorted to POV via wheel chair by MEDICAL LAB TECHNICIAN.
--- NOTE | 2025-05-01 14:45 | PN ---
NEPHROLOGY PROGRESS NOTE Date/Time Patient Seen: May 01, 2025 SUBJECTIVE: This patient is an 79-year-old lady who has underlying coronary artery disease, CABG, hypertension, chronic kidney disease, and hyperlipidemia. The patient is admitted with shortness of breath. She follows up in the office. The patient has no other associated finding. No other aggravating or relieving. Elevated creatinine of 1.4. We has been consulted for renal failure. Renal function is improving Electrolytes are stable. She is pending discharge disposition later today REVIEW OF SYSTEMS: GENERAL: Negative for any nausea, vomiting, fevers, chills, or weight loss. NEUROLOGIC: Negative for any blurry vision, blind spots, double vision, facial asymmetry, dysphagia, dysarthria, hemiparesis, hemisensory deficits, vertigo, ataxia. HEENT: Negative for any head trauma, neck trauma, neck stiffness, photophobia, phonophobia, sinusitis, rhinitis. CARDIAC: Negative for any chest pain, dyspnea on exertion, paroxysmal nocturnal dyspnea, peripheral edema. PULMONARY: Negative for any shortness of breath, wheezing, COPD, or TB exposure. GASTROINTESTINAL: Negative for any abdominal pain, nausea, vomiting, bright red blood per rectum, melena. GENITOURINARY: Negative for any dysuria, hematuria, incontinence. INTEGUMENTARY: Negative for any rashes, cuts, insect bites. RHEUMATOLOGIC: Negative for any joint pains, photosensitive rashes, history of vasculitis or kidney problems. HEMATOLOGIC: Negative for any abnormal bruising, frequent infections or bleeding. Vital Signs (last 8hr) Date Time Temp Pulse Resp B/P (MAP) Pulse Ox O2 Delivery O2 Flow Rate FiO2 05/01/25 11:45 97.9 71 16 146/68 99 Room Air 05/01/25 08:18 98.1 83 18 157/72 99 Room Air PHYSICAL EXAM: GENERAL: Alert and oriented x 3. No acute distress. Well-nourished. EYES: EOMI. Anicteric. HENT: Moist mucous membranes. No scleral icterus. No cervical lymphadenopathy. LUNGS: Clear to auscultation bilaterally. No accessory muscle use. CARDIOVASCULAR: Regular rate and rhythm. No murmur. No JVD. ABDOMEN: Soft, non-tender and non-distended. No palpable masses. EXTREMITIES: No edema. Non-tender. SKIN: No rashes or lesions. Warm. NEUROLOGIC: No focal neurological deficits. CN II-XII grossly intact, but not individually tested. PSYCHIATRIC: Cooperative. Appropriate mood and affect. Current Medications Medications (Trade) Dose Ordered Sig/Alicia Route PRN Reason Start Time Stop Time Status Last Admin Dose Admin Acetaminophen (TYLenol 325MG TAB) 650 mg Q6H PRN PO MILD PAIN (1-3) 04/30/25 15:00 05/01/25 14:18 DC Amlodipine Besylate (NorvASC 5MG TAB) 5 mg DAILY PO 05/01/25 09:00 04/30/25 17:29 DC Amlodipine Besylate (NorvASC 5MG TAB) 5 mg HS PO 04/30/25 21:00 05/01/25 14:18 DC 04/30/25 20:12 5 MG Aspirin (Aspirin 81mg Chew Tab) 81 mg DAILY PO 05/01/25 09:00 05/01/25 14:18 DC 05/01/25 08:31 81 MG Atorvastatin Calcium (LIPItor 20MG) 20 mg HS PO 04/30/25 21:00 05/01/25 14:18 DC 04/30/25 20:12 20 MG Ceftriaxone Sodium (ROCEphine 1G INJ) 1 gm Q24H IVPB 04/30/25 15:00 05/01/25 14:18 DC 04/30/25 15:11 1 GM Cetirizine HCl (ZYRtec 5 MG TABLET) 10 mg DAILY PO 05/01/25 09:00 05/01/25 14:18 DC 05/01/25 08:30 10 MG Doxazosin Mesylate (Doxazosin Mesylate) 2 mg BID PO 04/30/25 21:00 05/01/25 14:18 DC 05/01/25 08:31 2 MG Enoxaparin Sodium (Lovenox) 30 mg DAILY SQ 05/01/25 09:00 05/01/25 14:18 DC 05/01/25 08:33 30 MG EZETIMIBE (Zetia) 10 mg DAILY PO 05/01/25 09:00 05/01/25 14:18 DC 05/01/25 08:30 10 MG Famotidine (Pepcid 20mg Vial) 20 mg QODAY IV 04/30/25 15:30 05/01/25 14:18 DC 04/30/25 16:41 20 MG Ferrous Sulfate (Ferrous Sulfate) 325 mg DAILY PO 05/01/25 09:00 05/01/25 14:18 DC 05/01/25 08:31 325 MG Gabapentin (NEURontin 100 mg CAP) 100 mg DAILY PO 05/01/25 09:00 05/01/25 14:18 DC 05/01/25 08:31 100 MG Gabapentin (NEURontin 100 mg CAP) 200 mg DAILY PO 05/02/25 09:00 04/30/25 17:29 DC Hydralazine HCl (APRESOLine 20MG INJ) 5 mg Q6H PRN IV ADMINISTER FOR SBP > 160 04/30/25 15:30 05/01/25 14:18 DC Labetalol HCl (TRANdate 100 MG TABLET) 300 mg BID PO 04/30/25 21:00 05/01/25 14:18 DC 05/01/25 08:31 300 MG Losartan Potassium (CozAAR 100MG TAB) 100 mg HS PO 04/30/25 21:00 05/01/25 14:18 DC 04/30/25 20:12 100 MG Magnesium Sulfate 50 ml @ 0 mls/hr PROTOCOL IV 05/01/25 09:30 05/01/25 14:18 DC Ondansetron HCl (zoFRAN 4MG INJ) 4 mg Q6H PRN IVP NAUSEA/VOMITING 04/30/25 15:00 05/01/25 14:18 DC Sodium Chloride 1,000 ml @ 50 mls/hr Q20H IV 04/30/25 15:00 05/01/25 14:18 DC 04/30/25 22:45 50 MLS/HR Vitamin B Complex/ Vit C/Folic Acid (Nephrovite Tablet) 1 cap DAILY PO 05/01/25 09:00 04/30/25 20:42 DC Vitamin B Complex/ Vit C/Folic Acid (Nephrovite Tablet) 1 cap DAILY PO 05/01/25 09:00 05/01/25 14:18 DC 05/01/25 08:31 1 CAP LABORATORY: [ ] Hematology Labs: Test 04/30/25 12:14 Range/Units White Blood Count 6.7 4.8-10.8 K/uL Red Blood Count 3.86 L 4.00-5.50 MIL/uL Hemoglobin 12.0 12.0-16.0 g/dL Hematocrit 35.7 L 36-48 % Mean Corpuscular Volume 92.5 79-99 fL Mean Corpuscular Hemoglobin 31.1 27.0-33.0 pg Mean Corpuscular Hemoglobin Concent 33.6 32.0-36.0 g/dL Red Cell Distribution Width 13.1 11.0-15.5 % Platelet Count 149 130-400 K/uL Mean Platelet Volume 12.1 H 7.5-10.5 fL Immature Granulocyte % (Auto) 0.3 0-1 % Neutrophils (%) (Auto) 68.2 40.0-77.0 % Lymphocytes (%) (Auto) 21.0 21.0-51.0 % Monocytes (%) (Auto) 9.0 3.0-13.0 % Eosinophils (%) (Auto) 1.2 0.0-8.0 % Basophils (%) (Auto) 0.3 0.0-5.0 % Neutrophils # (Auto) 4.6 1.8-7.7 K/uL Lymphocytes # (Auto) 1.4 1.0-4.8 K/uL Monocytes # (Auto) 0.6 0.1-1.0 K/uL Eosinophils # (Auto) 0.08 0.00-0.70 K/uL Basophils # (Auto) 0.02 0.00-0.20 K/uL Absolute Immature Granulocyte (auto 0.02 0-1 K/uL Nucleated Red Blood Cells 0.0 0.0-0.19 % Erythrocyte Sedimentation Rate 12 0-30 MM/HR Chemistry Labs: Test 05/01/25 04:11 04/30/25 12:14 Range/Units Sodium Level 143 136-145 mmol/L Potassium Level 4.0 3.5-5.1 mmol/L Chloride Level 108 101-111 mmol/L Carbon Dioxide Level 28 21-32 mmol/L Blood Urea Nitrogen 18 7-18 mg/dL Creatinine 1.2 H 0.5-1.0 mg/dL Glomerular Filtration Rate Calc 46 >90 mL/min Random Glucose 84 70-105 mg/dL Uric Acid 6.4 2.6-7.2 mg/dL Total Calcium 8.6 8.5-10.1 mg/dL Phosphorus Level 3.1 2.5-4.9 mg/dL Magnesium Level 1.80 1.80-2.40 mg/dL Total Bilirubin 0.6 0.2-1.0 mg/dL Aspartate Amino Transf (AST/SGOT) 19 10-37 U/L Alanine Aminotransferase (ALT/SGPT) 19 12-78 U/L Alkaline Phosphatase 46 L 50-136 U/L Total Protein 6.9 6.0-8.3 g/dL Albumin 3.3 L 3.5-5.0 g/dL Direct Bilirubin 0.2 0.0-0.3 mg/dL C-Reactive Protein, Quantitative 5.40 H 0.5-3.0 mg/L Procalcitonin < 0.05 L 0.05-0.5 ng/mL DIAGNOSTICS / RADIOLOGY: REASON: Urinary tract infection, hx of CKD, hx of renal cyst ORDERING PHYSICIAN: LOGAN HENRY MD PROCEDURE: RENAL - US RENAL SONOGRAM US RENAL SONOGRAM HISTORY: UTI COMPARISON: None TECHNIQUE: Renal and bladder ultrasound study was performed. FINDINGS: The right kidney measures 6.1 x 2.4 x 1.9 cm. The left kidney measures 10 x 3.7 x 4 cm. No evidence of hydronephrosis is seen of either kidney. Both kidneys are seen. Bladder is well distended. There is right upper pole simple renal cyst measuring 15 x 18 x 13 mm. IMPRESSION: 1. No hydronephrosis is seen. DICTATED BY: WAQAS SANCHEZ MD DATE: 04/30/251808 REASON: headache ORDERING PHYSICIAN: TERRANCE SRIVASTAVA MD PROCEDURE: HEAD WO - CT HEAD/BRAIN W/O CONTRAST CT HEAD/BRAIN W/O CONTRAST HISTORY: Headaches COMPARISON: None TECHNIQUE: Multiple sequential axial images of the head were obtained from the base of the skull through vertex. Patient was not given contrast through intravenous route. FINDINGS: The ventricles and extraventricular CSF spaces are dilated consistent with cerebral atrophy. Nonspecific white matter changes seen. 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 There is no midline shift, mass effect or herniation. No acute intracranial bleed is seen. Visualized portion of the paranasal sinuses are grossly within normal limits. IMPRESSION: 1. No acute intracranial bleed is seen. 2. Atrophy with white matter changes. 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 DICTATED BY: WAQAS SANCHEZ MD DATE: 04/30/25 1410 ASSESSMENT: Acute on chronic renal failure Acute occipital headache x3 days, resolving status post migraine cocktail, POA Mild dehydration, POA Urinary tract infection, POA Underlying history of hypertension, POA Hyperlipidemia, POA Frailty, POA Octogenarian, POA History of coronary artery disease, POA Prior history of coronary artery bypass grafting, POA History of prior CVA in 2017, POA PLAN: Labs, diagnostic, radiologic exams reviewed and interpreted by myself and supervising physician. We have reviewed external records in detail From Nephrology standpoint, patient may be discharged Follow up in the renal clinic Monitor blood pressure adjust medication doses as needed Avoid hypotensive episodes May use Dilaudid 0.5 mg IV every 6 hours as needed for severe pain Monitor blood sugars Strict intake, output, and daily weight should be monitored Please renally adjust medications Avoid nephrotoxic and nonsteroidal drugs Avoid contrast if possible Will continue to monitor renal function, anemia, electrolytes Treatment plan discussed with patient Questions were answered We have discussed with the other team physicians in detail about the care plan We will continue to monitor the patient closely ATTESTATION BY PHYSICIAN I have seen and examined the patient. I reviewed the documentation, medical decision making, and treatment plan as noted by the mid-level provider above. I agree with the findings and plan of care. SERA CARLSON MD, [facility] May 01, 2025 14:45
[2025-05-02] MEDS ORDERED: GABApentin 100 MG CAPSULE PO SCH (09:00)
== END 2025-05-01 14:15 | disposition home or self-care (01) ==
LOC: EDH 11:55 → INTOOBSV 14:51 → EDHIP 14:51 → UNDOADMOB 14:51 → EDHIP 22:46 → 4CH 22:46 → INTOOBSV 05-01 09:30 → 4CH 05-01 09:30 → OBSVTOIN 05-01 09:30
PROVIDERS: ADMIT Internal Medicine; ATTEND Internal Medicine
DX: E86.0 Dehydration (principal); R51.9 Headache, unspecified; N39.0 Urinary tract infection, site not specified; R54 Age-related physical debility; I12.9 Hypertensive chronic kidney disease with stage 1 through stage 4 chronic kidney disease, or unspecified chronic kidney disease; N18.30 Chronic kidney disease, stage 3 unspecified; E78.5 Hyperlipidemia, unspecified; N17.9 Acute kidney failure, unspecified; Z86.73 Personal history of transient ischemic attack (TIA), and cerebral infarction without residual deficits; Z95.1 Presence of aortocoronary bypass graft; Z90.49 Acquired absence of other specified parts of digestive tract; Z79.899 Other long term (current) drug therapy
CPT/HCPCS: 96374; 96361; 96375 ×2; 99285; 80076; 83735 ×2; 80048; 85025; 85651; 87086; 86140; 81001; 36415 ×2; 70450; 76770; 84145; 96372; 84100; 84550; 80053; J1200; J3490 ×2; J7030 ×2; J0780; J0696; G0378 ×5; J1650; 96365